=== PATIENT | male | born 1945 | race Caucasian/White ===

== ENCOUNTER 2017-01-12 06:16 | Day surgery (SDC) | payer MEDICARE, OTHER ==
[2017-01-12] MEDS ORDERED: PHENYLEPHRINE 2.5% OPHTH 2 ML DROPS ONE (06:28)
[2017-01-12] MEDS ORDERED: PROPARACAINE 0.5% OPHTH DROPS 15 ML OPTH ONE ×2 (06:55→07:44)
[2017-01-12] MEDS ORDERED: CYCLOPENTOLATE 1% OPHTH DROPS 2 ML OPTH ONE (06:55)
[2017-01-12] MEDS ORDERED: KETOROLAC 0.45% OPHTH DROPS OPTH ONE (06:55)
[2017-01-12] MEDS ORDERED: PHENYLEPHRINE 2.5% OPHTH 2 ML DROPS OPTH ONE (06:55)
[2017-01-12] MEDS ORDERED: LACTATED RINGERS 500 ML IV ONE (07:00)
[2017-01-12] MEDS ORDERED: LACTATED RINGERS 1,000 ML IV ONE (07:17)
[2017-01-12] MEDS ORDERED: CHONDR SULF/HYALURONATE SYRINGE IO ONE (07:44)
[2017-01-12] MEDS ORDERED: EPINEPHrine 1 MG/ML AMP IVP ONE (07:44)
[2017-01-12] MEDS ORDERED: TIMOLOL 0.5% OPHTH DROPS OPTH ONE (07:44)
[2017-01-12] MEDS ORDERED: BRIMONIDINE 0.2% OPHTH DROPS 5 ML OPTH ONE (07:44)
[2017-01-12] MEDS ORDERED: BSS/LIDOCAINE/EPINEPHRINE 1 ML SYRINGE IO ONE (07:45)
[2017-01-12] MEDS ORDERED: TRIAMCIN/MOXIFLOX/VANCO 1 ML VIAL IO ONE (07:45)
[2017-01-12] MEDS ORDERED: fentaNYL 100 MCG/2 ML VIAL IVP ONE (07:52)
[2017-01-12] MEDS ORDERED: MIDAZOLAM 2 MG/2 ML VIAL IVP ONE (07:52)
== END 2017-01-12 06:17 | disposition home or self-care (01) ==
PROC: 08RK3JZ Replacement of Left Lens with Synthetic Substitute, Percutaneous Approach (ICD-10-PCS; principal; 2017-01-12 07:30)
DX: E11.36 Type 2 diabetes mellitus with diabetic cataract (principal); H25.812 Combined forms of age-related cataract, left eye; I10 Essential (primary) hypertension; E78.5 Hyperlipidemia, unspecified; K21.9 Gastro-esophageal reflux disease without esophagitis; Z79.4 Long term (current) use of insulin; Z79.52 Long term (current) use of systemic steroids; Z85.828 Personal history of other malignant neoplasm of skin; Z87.891 Personal history of nicotine dependence; Z98.1 Arthrodesis status
CPT/HCPCS: 66984; A9270; J7120; V2632

== ENCOUNTER 2017-02-09 10:51 | Outpatient (CLI) | payer MEDICARE, OTHER | END 2017-02-09 10:52 | disposition home or self-care (01) | DX: M54.89 Other dorsalgia (principal); I10 Essential (primary) hypertension; E11.9 Type 2 diabetes mellitus without complications ==

== ENCOUNTER 2017-06-12 11:30 | Outpatient (CLI) | payer MEDICARE, OTHER ==
[2017-06-12 20:20] LABS: ALBUMIN/GLOBULIN RATIO 1.5 (1.0-2.2); BILIRUBIN,TOTAL 0.6 mg/dL (0.2-1.0); CALCIUM 9.3 mg/dL (8.5-10.3); CREATININE 1.4 mg/dL (0.6-1.2); POTASSIUM 4.6 mmol/L (3.5-5.0); TOTAL PROTEIN 7.4 g/dL (6.7-8.2)
[2017-06-12 21:14] LABS: HEMOGLOBIN A1C 0.91 g/dL
== END 2017-06-12 11:31 | disposition home or self-care (01) ==
LOC: LAB.WCP 11:30
PROVIDERS: ATTEND Family Medicine
DX: E78.9 Disorder of lipoprotein metabolism, unspecified (principal)
CPT/HCPCS: 36415; 80053; 83036

== ENCOUNTER 2017-11-27 22:18 | Observation (INO) | payer MEDICARE, OTHER ==
[2017-11-27] MEDS ORDERED: SODIUM CHLORIDE 0.9% 1,000 ML IV ONE (22:41)
[2017-11-27 23:03] LABS: BASOPHILS # (AUTO) 0.1 10^3/uL (0.0-0.1); BASOPHILS % (AUTO) 0.5 %; EOSINOPHILS # (AUTO) 0.1 10^3/uL (0.0-0.7); EOSINOPHILS % (AUTO) 1.3 %; HGB - HEMOGLOBIN 13.9 g/dL (14.0-18.0); LYMPHOCYTES # (AUTO) 1.2 10^3/uL (1.5-3.5); LYMPHOCYTES % (AUTO) 10.6 %; MEAN CORPUSCULAR HEMOGLOBIN 28.7 pg (27.0-31.0); MEAN CORPUSCULAR VOLUME 84.3 fL (80.0-94.0); MEAN PLATELET VOLUME 7.8 fL (7.4-11.4); MONOCYTES # (AUTO) 0.6 10^3/uL (0.0-1.0); MONOCYTES % (AUTO) 5.2 %; NEUTROPHILS # (AUTO) 9.2 10^3/uL (1.5-6.6); NEUTROPHILS % (AUTO) 82.4 %; PLT - PLATELET COUNT 150 10^3/uL (130-450); RED BLOOD COUNT 4.86 10^6/uL (4.70-6.10); RED CELL DISTRIBUTION WIDTH 13.7 % (12.0-15.0); WHITE BLOOD COUNT 11.2 x10^3/uL (4.8-10.8)
[2017-11-27 23:20] LABS: ALBUMIN 4.2 g/dL (3.2-5.5); ALBUMIN/GLOBULIN RATIO 1.4 (1.0-2.2); BILIRUBIN,TOTAL 0.4 mg/dL (0.2-1.0); CALCIUM 9.4 mg/dL (8.5-10.3); CREATININE 0.9 mg/dL (0.6-1.2); MAGNESIUM 1.7 mg/dL (1.7-2.8); TOTAL PROTEIN 7.1 g/dL (6.7-8.2)
--- NOTE | 2017-11-27 23:33 | XRAY Report ---
EXAM: ABDOMINAL SERIES AND PA CHEST EXAM DATE: 11/27/2017 11:08 PM. CLINICAL HISTORY: Abdominal pain and constipation. COMPARISON: CT 01/06/2014 TECHNIQUE: 2 views abdomen and 1 view chest. FINDINGS: CHEST: Lungs/Pleura: No focal opacities. No effusion or pneumothorax. Mediastinum: Within exam limitations, cardiomediastinal contour is normal. Other: Moderate left shoulder degenerative change. ABDOMEN: Bowel Gas Pattern: No abnormal dilated bowel loops. Free Air: No evidence of free intraperitoneal gas. Other: Moderate bilateral hip joint degenerative change. IMPRESSION: 1. No definite acute abdominal abnormality. 2. No acute cardiopulmonary abnormalities. [facility] Referring Provider Line: [phone] SITE ID: [id number]
--- NOTE | 2017-11-27 23:33 | XRAY Preliminary Report ---
Exam: XR ABDOMEN ACUTE IMPRESSION: 1. No definite acute abdominal abnormality. 2. No acute cardiopulmonary abnormalities. [facility] SITE ID: [id number]
[2017-11-28 00:12] LABS: BILIRUBIN,URINE NEGATIVE (NEGATIVE); GLUCOSE, URINE (UA) NEGATIVE (NEGATIVE); KETONES,URINE (UA) NEGATIVE (NEGATIVE); LEUKOCYTE ESTERASE, URINE NEGATIVE (NEGATIVE); NITRITE,URINE NEGATIVE (NEGATIVE); OCCULT BLOOD,URINE TRACE-LYSE (NEGATIVE); PH,URINE 6.5 PH (5.0-7.5); PROTEIN,URINE NEGATIVE (NEGATIVE); UROBILINOGEN,URINE 0.2 (NORMAL) E.U./dL (NORMAL)
[2017-11-28 00:16] LABS: CLARITY,URINE CLEAR (CLEAR)
[2017-11-28] MEDS ORDERED: IBUPROFEN 600 MG TABLET PO PRN (00:20)
[2017-11-28] MEDS ORDERED: SODIUM CHLORIDE FLUSH 0.9% 10 ML SYRINGE IVP PRN (00:20)
[2017-11-28] MEDS ORDERED: PROCHLORPERAZINE 10 MG/2 ML VIAL IVP PRN (00:20)
[2017-11-28] MEDS ORDERED: TEMAZEPAM 15 MG CAPSULE PO PRN (00:20)
[2017-11-28] MEDS ORDERED: oxyCODONE 5 MG TABLET PO PRN (00:20)
--- NOTE | 2017-11-28 00:22 | ED Physician Documentation ---
History of Present Illness - Stated complaint Stated Complaint: abd pain - Chief complaint Chief Complaint: Abd Pain - History obtained from History obtained from: Patient, Family - History of Present Illness Timing: Today - Additonal information Additional information: Patient is a 72 year old male with multiple co morbidities who is presenting to the emergency department for dizziness, generalized weakness and just not feeling well. patient states that the symptoms have been progressing over the last week. patient states that the dizziness was worse tonight so he came in for evaluation. Review of Systems Constitutional: denies: Fever, Chills Eyes: denies: Decreased vision Ears: denies: Ear pain Nose: denies: Rhinorrhea / runny nose, Congestion Throat: denies: Sore throat Cardiac: denies: Chest pain / pressure, Palpitations Respiratory: denies: Dyspnea, Cough, Wheezing GI: reports: Abdominal Pain, Constipation : denies: Dysuria, Frequency Skin: denies: Rash, Lesions Musculoskeletal: denies: Neck pain, Back pain Neurologic: reports: Generalized weakness. denies: Focal weakness, Numbness, Near syncope, Syncope, Headache, Head injury, LOC Immunocompromised: denies: Immunocompromised PD PAST MEDICAL HISTORY - Past Medical History Cardiovascular: Hypertension, High cholesterol, [place] Respiratory: None Endocrine/Autoimmune: Type 1 diabetes GI: GERD, Other : None HEENT: Chronic vision loss Psych: None Musculoskeletal: Osteoarthritis, Gout, Chronic back pain Derm: Psoriasis - Past Surgical History Past Surgical History: Yes Ortho: Knee replacement, Other - Present Medications Home Medications: Ambulatory Orders Medication Instructions Recorded Confirmed Amlodipine Besylate 5 mg PO BID 11/27/13 01/12/17 Aspirin 81 mg PO DAILY 11/27/13 01/12/17 Atorvastatin Calcium [Lipitor] 10 mg PO QPM 11/27/13 01/12/17 Calcium Citrate/Vitamin D3 1 each PO DAILY 11/27/13 01/12/17 [Citracal-Vit D 200 mg-250 Tab] Carvedilol [Coreg] 25 mg PO BID 11/27/13 01/12/17 Cholecalciferol (Vitamin D3) 2,000 unit PO DAILY 11/27/13 01/12/17 [Vitamin D] Clonidine [Catapres-Tts 3] 1 each TD ONCE 11/27/13 01/12/17 Cyclobenzaprine [Flexeril] 10 mg PO TID PRN 11/27/13 01/12/17 Doxazosin Mesylate [Cardura] 8 mg PO DAILY 11/27/13 01/12/17 Esomeprazole Magnesium [Nexium] 20 mg PO DAILY 11/27/13 01/12/17 FLUoxetine [PROzac] 60 mg PO DAILY 11/27/13 01/12/17 Fluocinolone Acetonide 1 gm TOP DAILY 11/27/13 01/12/17 Insulin Glargine,Hum.rec.anlog 30 unit SQ QPM 11/27/13 01/12/17 [Lantus] Metformin HCl [Fortamet] 1,000 mg PO BID 11/27/13 01/12/17 Polyethylene Glycol 3350 [Miralax] 1 cap PO DAILY 11/27/13 01/12/17 Spironolactone [Aldactone] 50 mg PO TID 11/27/13 01/12/17 Telmisartan [Micardis] 80 mg PO DAILY 11/27/13 01/12/17 oxyCODONE ER [OxyCONTIN] 40 mg PO Q12H 11/27/13 01/12/17 oxyCODONE [Roxicodone] 5 mg PO ONCE 11/27/13 01/12/17 Gabapentin 300 mg PO BID 01/12/17 01/12/17 Hydralazine HCl 100 mg PO TID 01/12/17 01/12/17 - Allergies Allergies/Adverse Reactions: Allergies Allergy/AdvReac Type Severity Reaction Status Date / Time amoxicillin [Amoxicillin] Allergy Hives Verified 11/27/17 22:34 acetaminophen AdvReac Nausea Verified 11/27/17 22:34 contrast dye Allergy Rash Uncoded 11/27/13 15:14 - Social History Does the pt smoke?: Yes Smoking Status: Current every day smoker Does the pt drink ETOH?: No Does the pt have substance abuse?: No - Immunizations Immunizations are current?: Yes PD ED PE NORMAL - Vitals Vital signs reviewed: Yes - General General: Alert and oriented X 3, No acute distress - HEENT HEENT: Atraumatic, PERRL - Neck Neck: Supple, no meningeal sign - Cardiac Cardiac: No murmur - Respiratory Respiratory: No respiratory distress, Clear bilaterally - Abdomen Abdomen: Soft, Non tender, Non distended - Derm Derm: Normal color, No rash - Extremities Extremities: No deformity, No calf tenderness / cord - Neuro Neuro: Alert and oriented X 3, tube trailer filler 2-12 intact, No motor deficit, No sensory deficit, Normal speech Eye Opening: Spontaneous Motor: Obeys Commands Verbal: Oriented GCS Score: 15 PD ED PE EXPANDED - HEENT HEENT: Dry mucous membranes - Cardiac Cardiac: Reba Results - Vitals Vitals: Vital Signs - 24 hr 11/27/17 22:30 Temperature 36.4 C L Heart Rate 50 L Respiratory 17 Rate Blood Pressure 160/62 H O2 Saturation 100 Oxygen O2 Source Room air - EKG (time done) 2252 Rate: Rate (enter#) (46) Rhythm: Sinus bradycardia Cedar: Normal Intervals: Normal AL QRS: Normal Ischemia: Normal ST segments Compare to prior EKG: Old EKG unavailable - Labs Labs: Laboratory Tests 11/27/17 11/27/17 11/27/17 22:53 22:53 22:53 WBC 11.2 H RBC 4.86 Hgb 13.9 L Hct 40.9 L MCV 84.3 MCH 28.7 MCHC 34.0 RDW 13.7 Plt Count 150 MPV 7.8 Neut # 9.2 H Lymph # 1.2 L Rawlins # 0.6 Eos # 0.1 Baso # 0.1 Absolute Nucleated RBC 0.00 Nucleated RBC % 0.0 Sodium 122 L Potassium 4.8 Chloride 84 L Carbon Dioxide 22 Anion Gap 15.0 H BUN 12 Creatinine 0.9 Estimated GFR (MDRD) 82 L Glucose 267 H Calcium 9.4 Phosphorus 3.0 Magnesium 1.7 Total Bilirubin 0.4 AST 18 ALT 19 Alkaline Phosphatase 74 Troponin I < 0.04 Total Protein 7.1 Albumin 4.2 Globulin 2.9 Albumin/Globulin Ratio 1.4 Lipase 25 TSH Urine Color Urine Clarity Urine pH Ur Specific [place] Urine Protein Urine Glucose (UA) Urine Ketones Urine Occult Blood Urine Nitrite Urine Bilirubin Urine Urobilinogen Ur Leukocyte Esterase Ur Microscopic Review Urine Culture Comments Influenza A (Rapid) Influenza B (Rapid) Influenza Types A,B Ag 11/27/17 11/27/17 11/28/17 22:53 22:53 00:00 WBC RBC Hgb Hct MCV MCH MCHC RDW Plt Count MPV Neut # Lymph # [place] # Eos # Baso # Absolute Nucleated RBC Nucleated RBC % Sodium Potassium Chloride Carbon Dioxide Anion Gap BUN Creatinine Estimated GFR (MDRD) Glucose Calcium Phosphorus Magnesium Total Bilirubin AST ALT Alkaline Phosphatase Troponin I Total Protein Albumin Globulin Albumin/Globulin Ratio Lipase TSH 0.92 Urine Color YELLOW Urine Clarity CLEAR Urine pH 6.5 Ur Specific [place] <=1.005 Urine Protein NEGATIVE Urine Glucose (UA) NEGATIVE Urine Ketones NEGATIVE Urine Occult Blood TRACE-LYSE Urine Nitrite NEGATIVE Urine Bilirubin NEGATIVE Urine Urobilinogen 0.2 (NORMAL) Ur Leukocyte Esterase NEGATIVE Ur Microscopic Review NOT INDICATED Urine Culture Comments NOT INDICATED Influenza A (Rapid) Negative Influenza B (Rapid) Negative Influenza Types A,B Ag - - Rads (name of study) acute abd Radiology: Final report received (no acute abnormality) PD MEDICAL DECISION MAKING - ED course Complexity details: reviewed old records, reviewed results, re-evaluated patient , considered differential, d/w patient, d/w family, d/w groundwater consultant ED course: Patient was seen and examined at bedside. IV access was gained and labs were drawn. Fluids were started. ekg was performed and showed sinus reba, but patient is on beta khoa. When patient's labs came back patient was found to be hyponatremic which is new for him. Hospitalist was contacted and the case was discussed with her. Patient was placed in observation for further care. Departure - Departure Disposition: ED Place in Observation Clinical Impression: Hyponatremia Condition: Good
[2017-11-28] MEDS ORDERED: CYCLOBENZAPRINE 10 MG TABLET PO PRN (00:29)
--- NOTE | 2017-11-28 00:34 | HISTORY & PHYSICAL EXAMINATION ---
Chief Complaint - Chief Complaint Chief Complaint: Dizziness and lightheadedness for about 1 week History of Present Illness - Admitted From Admitted From:: Home - History of Present Illness HPI Comment/Other: Mr. Wenceslao Dominguez Jr is a pleasant 72-year-old male who has been experiencing increasing dizziness and lightheadedness for about a week. He says it has been worsening daily; he also has multiple other complaints including a bloated abdomen and gassy feeling. He got to the point today where he was becoming unstable when walking and so came to the emergency department for evaluation and treatment.While here all of his testing was negative however incidentally was found that he was significantly hyponatremic with a sodium level of 122 so he was brought in for observation and replacement of his sodium stores. History - Past Medical History Cardiovascular: reports: Hypertension, High cholesterol, [place] Respiratory: reports: None Endocrine/Autoimmune: reports: Type 1 diabetes GI: reports: GERD, Other : reports: None HEENT: reports: Chronic vision loss Psych: reports: None Musculoskeletal: reports: Osteoarthritis, Gout, Chronic back pain Derm: reports: Psoriasis MRSA Hx?: No - Past Surgical History Ortho: reports: Knee replacement, Other Meds/Allgy - Home Medications Home Medications: Ambulatory Orders Medication Instructions Recorded Confirmed Amlodipine Besylate 5 mg PO BID 11/27/13 01/12/17 Aspirin 81 mg PO DAILY 11/27/13 01/12/17 Atorvastatin Calcium [Lipitor] 10 mg PO QPM 11/27/13 01/12/17 Calcium Citrate/Vitamin D3 1 each PO DAILY 11/27/13 01/12/17 [Citracal-Vit D 200 mg-250 Tab] Carvedilol [Coreg] 25 mg PO BID 11/27/13 01/12/17 Cholecalciferol (Vitamin D3) 2,000 unit PO DAILY 11/27/13 01/12/17 [Vitamin D] Clonidine [Catapres-Tts 3] 1 each TD ONCE 11/27/13 01/12/17 Cyclobenzaprine [Flexeril] 10 mg PO TID PRN 11/27/13 01/12/17 Doxazosin Mesylate [Cardura] 8 mg PO DAILY 11/27/13 01/12/17 Esomeprazole Magnesium [Nexium] 20 mg PO DAILY 11/27/13 01/12/17 FLUoxetine [PROzac] 60 mg PO DAILY 11/27/13 01/12/17 Fluocinolone Acetonide 1 gm TOP DAILY 11/27/13 01/12/17 Insulin Glargine,Hum.rec.anlog 30 unit SQ QPM 11/27/13 01/12/17 [Lantus] Metformin HCl [Fortamet] 1,000 mg PO BID 11/27/13 01/12/17 Polyethylene Glycol 3350 [Miralax] 1 cap PO DAILY 11/27/13 01/12/17 Spironolactone [Aldactone] 50 mg PO TID 11/27/13 01/12/17 Telmisartan [Micardis] 80 mg PO DAILY 11/27/13 01/12/17 oxyCODONE ER [OxyCONTIN] 40 mg PO Q12H 11/27/13 01/12/17 oxyCODONE [Roxicodone] 5 mg PO ONCE 11/27/13 01/12/17 Gabapentin 300 mg PO BID 01/12/17 01/12/17 Hydralazine HCl 100 mg PO TID 01/12/17 01/12/17 - Allergies Allergies/Adverse Reactions: Allergies Allergy/AdvReac Type Severity Reaction Status Date / Time amoxicillin [Amoxicillin] Allergy Hives Verified 11/27/17 22:34 acetaminophen AdvReac Nausea Verified 11/27/17 22:34 contrast dye Allergy Rash Uncoded 11/27/13 15:14 Review of Systems - Constitutional Constitutional: reports: Fatigue, Weakness. denies: Fever, Chills, Malaise - Eyes Eyes: denies: Pain, Irritation, Blurred vision, Dipolpia - Ears, Nose & Throat Ears, Nose & Throat: denies: Ear pain, Tinnitus, Vertigo, Nasal pain - Cardiovascular Cariovascular: denies: Palpitations, Chest pain, Edema, Syncope - Respiratory Respiratory: denies: Cough, Sputum production, Wheezing, Hemoptysis, Orthopnea - Gastrointestinal Gastrointestinal: reports: Bloating. denies: Abdominal pain, Abdominal distention, Constipation, Diarrhea, Change in bowel habits, Rectal bleeding - Genitourinary Genitourinary: denies: Dysuria, Frequency, Urgency, Hematuria - Musculoskeletal Musculoskeletal: denies: Muscle pain, Back pain, Muscle aches, Stiffness - Integumentary Integumentary: denies: Rash, Pruritis, Lesions - Neurological Neurological: reports: Dizziness. denies: General weakness, Focal weakness, Headache, Numbness - Psychiatric Psychiatric: denies: Depression, Anxiety, Suicidal, Hallucinations - Endocrine Endocrine: denies: Polyuria, Polydypsia, Polyphagia - Hematologic/Lymphatic Hematologic/Lymphatic: denies: Anemia, Bruising, Petechiae - All Other Systems All Other Systems: reports: Reviewed and negative Exam - Vital Signs Reviewed Vital Signs: Yes Vital Signs: Vital Signs x48h Temp Pulse Resp BP Pulse Ox 11/27/17 22:30 36.4 C L 50 L 17 160/62 H 100 - Physical Exam General Appearance: positive: No acute distress, Alert Eyes Bilateral: positive: Normal inspection, PERRL, EOMI ENT: positive: ENT inspection nml, Pharynx nml, No signs of dehydration. negative: Oral lesions Neck: positive: Nml inspection, Thyroid nml, No JVD, Trachea midline. negative : Thyromegaly Respiratory: positive: Chest non-tender, No respiratory distress, Breath sounds nml Cardiovascular: positive: Regular rate & rhythm, No murmur, No gallop Peripheral Pulses: positive: 1+ Abdomen: positive: Non-tender, No organomegaly, Nml bowel sounds, No distention. negative: Guarding, Rebound Back: positive: Nml inspection. negative: CVA tenderness (R), CVA tenderness (L ) Skin: positive: Color nml, No rash, Warm, Dry Extremities: positive: Non-tender, Full ROM, Nml appearance Neurologic/Psychiatric: positive: Oriented x3, CN's nml (2-12), Motor nml, Sensation nml, Mood/affect nml Conclusion/Plan - Problem List (1) Hyponatremia Conclusion/Plan: We will start admit the patient to observation and give him IV normal saline along with oral salt tablets. - Lab Results Lab results reviewed: Yes Fish Bones: 11/27/17 22:53 11/27/17 22:53 - Diagnostic Imaging Results Diagnostic Imaging Results: positive: Final report reviewed Diagnostic Imaging Results Comments: EXAM: ABDOMINAL SERIES AND PA CHEST EXAM DATE: 11/27/2017 11:08 PM. CLINICAL HISTORY: Abdominal pain and constipation. COMPARISON: CT 01/06/2014 TECHNIQUE: 2 views abdomen and 1 view chest. FINDINGS: CHEST: Lungs/Pleura: No focal opacities. No effusion or pneumothorax. Mediastinum: Within exam limitations, cardiomediastinal contour is normal. Other: Moderate left shoulder degenerative change. ABDOMEN: Bowel Gas Pattern: No abnormal dilated bowel loops. Free Air: No evidence of free intraperitoneal gas. Other: Moderate bilateral hip joint degenerative change. IMPRESSION: 1. No definite acute abdominal abnormality. 2. No acute cardiopulmonary abnormalities. Core Measures - Anticipated LOS I expect patient to be DC'd or transferred within 96 hours.: Yes - DVT/VTE - Prophylaxis VTE/DVT Device ordered at admit?: Yes
[2017-11-28] MEDS ORDERED: oxyCODONE ER 10 MG TABLET PO SCH ×2 (01:00→09:00)
[2017-11-28] MEDS ORDERED: oxyCODONE 5 MG TABLET PO SCH ×2 (01:00→06:00)
[2017-11-28] MEDS ORDERED: cloNIDine 0.3 MG PATCH TOP SCH (01:00)
[2017-11-28] MEDS ORDERED: NS W/20 MEQ KCL 1,000 ML IV SCH (01:00)
[2017-11-28 05:12] LABS: BASOPHILS % (AUTO) 0.4 %; EOSINOPHILS # (AUTO) 0.2 10^3/uL (0.0-0.7); EOSINOPHILS % (AUTO) 1.6 %; HGB - HEMOGLOBIN 12.9 g/dL (14.0-18.0); LYMPHOCYTES # (AUTO) 1.6 10^3/uL (1.5-3.5); LYMPHOCYTES % (AUTO) 16.3 %; MEAN CORPUSCULAR HEMOGLOBIN 29.6 pg (27.0-31.0); MEAN CORPUSCULAR HGB CONC 34.8 g/dL (32.0-36.0); MEAN CORPUSCULAR VOLUME 85.1 fL (80.0-94.0); MEAN PLATELET VOLUME 8.1 fL (7.4-11.4); MONOCYTES # (AUTO) 0.7 10^3/uL (0.0-1.0); MONOCYTES % (AUTO) 7.4 %; NEUTROPHILS # (AUTO) 7.4 10^3/uL (1.5-6.6); NEUTROPHILS % (AUTO) 74.3 %; PLT - PLATELET COUNT 136 10^3/uL (130-450); RED BLOOD COUNT 4.35 10^6/uL (4.70-6.10); WHITE BLOOD COUNT 9.9 x10^3/uL (4.8-10.8)
[2017-11-28 05:24] LABS: CALCIUM 8.7 mg/dL (8.5-10.3); CREATININE 0.8 mg/dL (0.6-1.2)
[2017-11-28 05:41] LABS: HB2 TOTAL 13.5 g/dL; HEMOGLOBIN A1C 0.8 g/dL; HEMOGLOBIN A1C % 7.6 % (4.6-6.2)
[2017-11-28] MEDS ORDERED: hydrALAZINE 25 MG TABLET PO SCH (06:00)
[2017-11-28] MEDS ORDERED: SODIUM CHLORIDE FLUSH 0.9% 10 ML SYRINGE IVP SCH (06:00)
[2017-11-28] MEDS ORDERED: SPIRONOLACTONE 25 MG TABLET PO SCH (06:00)
[2017-11-28] MEDS ORDERED: PANTOPRAZOLE 40 MG TABLET PO SCH (07:00)
[2017-11-28] MEDS ORDERED: POLYETHYLENE GLYCOL 3350 238 GM BOTTLE PO ONE (07:34)
--- NOTE | 2017-11-28 08:49 | Discharge Plan ---
Discharge Plan Disposition: 01 Home, Self Care Condition: Good Diet: Low Sodium Activity Restrictions: Activity as Tolerated Shower Restrictions: No Driving Restrictions: No Additional Instructions or Follow Up instructions: You were admitted to the hospital because of weakness and we think it was from a low sodium of 122. With salt water replacement via an IV in your arm, it is now 128 this morning. We think the low sodium is from maintenance prozac use as well as spironolactone. Please ask your primary care provider to consider stopping metformin. If you are on a diuretic, there is a higher risk of water dehydration. If you take metformin and you are dehydrated, it can sometimes lead to excess acid in your blood. We also found your A1c measurement for diabetic control to be 7.6%. Goal is to be 7% in your age group. Dr. Huddleston may need to change your diabetic medicine or you may need to tighten up how much carbohydrates you eat in your diet. No Smoking: If you smoke, Please STOP! Call for help. Follow-up with: Oskar Huddleston MD [Primary Care Provider] -
[2017-11-28] MEDS ORDERED: metFORMIN 500 MG TABLET PO SCH (09:00)
[2017-11-28] MEDS ORDERED: FLUOCINOLONE ACETONIDE TOP SCH (09:00)
[2017-11-28] MEDS ORDERED: LOSARTAN 50 MG TABLET PO SCH (09:00)
[2017-11-28] MEDS ORDERED: NON FORMULARY MED (Telmisartan [Micardis] 80 MG) PO SCH (09:00)
[2017-11-28] MEDS ORDERED: DOXAZOSIN 4 MG TABLET PO SCH (09:00)
[2017-11-28] MEDS ORDERED: CARVEDILOL 12.5 MG TABLET PO SCH (09:00)
[2017-11-28] MEDS ORDERED: CHOLECALCIFEROL 1,000 UNIT TABLET PO SCH (09:00)
[2017-11-28] MEDS ORDERED: POLYETHYLENE GLYCOL 3350 17 GM PACKET PO SCH (09:00)
[2017-11-28] MEDS ORDERED: POLYETHYLENE GLYCOL 3350 238 GM BOTTLE PO SCH (09:00)
[2017-11-28] MEDS ORDERED: ESOMEPRAZOLE MAGNESIUM 20 MG PO SCH (09:00)
[2017-11-28] MEDS ORDERED: amLODIPine 5 MG TABLET PO SCH (09:00)
[2017-11-28] MEDS: FLUoxetine 10 MG CAPSULE PO SCH ×2 (09:04→11:33)
[2017-11-28] MEDS: GABAPENTIN 300 MG CAPSULE PO SCH ×2 (09:07→11:28)
[2017-11-28] MEDS: CHOLECALCIFEROL 1,000 UNIT TABLET PO SCH ×2 (09:08→11:33)
[2017-11-28] MEDS: ASPIRIN CHEW 81 MG TABLET PO SCH ×2 (09:08→09:19)
[2017-11-28] MEDS: CALCIUM CITRATE 250 MG TABLET PO SCH ×2 (09:18→11:33)
[2017-11-28] MEDS: SODIUM CHLORIDE 1 GM TABLET PO SCH ×2 (09:18→11:33)
[2017-11-28 11:56] VITALS: BP 138/54
--- NOTE | 2017-11-28 17:44 | DISCHARGE SUMMARY ---
"Discharge Summary Admit Date: 11/28/17 Discharge Date: 11/28/17 Discharging Provider: Kianna Esparza MD Primary Care Provider: Oskar Huddleston MD Code Status: Do Not Attempt Resuscitation Condition at Discharge: Good Discharge Disposition: 01 Home, Self Care - DIAGNOSES Discharge Diagnoses with Status of Each Condition: hyponatremia, improved SSRI causing adverse effect in therapeutic use, chronic. - HPI History of Present Illness: Mr. Wenceslao Dominguez Jr is a pleasant 72-year-old male who has been experiencing increasing dizziness and lightheadedness for about a week. He says it has been worsening daily; he also has multiple other complaints including a bloated abdomen and gassy feeling. He got to the point today where he was becoming unstable when walking and so came to the emergency department for evaluation and treatment.While here all of his testing was negative however incidentally was found that he was significantly hyponatremic with a sodium level of 122 so he was brought in for observation and replacement of his sodium stores. - CONSULTS | PROCEDURES Consultations: none - HOSPITAL COURSE Hospital Course: He was treated with IV normal saline and responded with a sodium going from 122 to 128. It is felt he has hyponatremia from use of prozac (a known side effect of SSRI) and aldactone. long as the hyponatremia is stable, SSRI treatment can safely remain in place. However this patient shares that his use is erratic. He takes his medicines on a method established by himself. He also has diabetes that is mildly uncontrolled with an A1c of 7.6%. Because he uses metformin, it is recommended he consider a different method of treatment to avoid lactic acidosis. I have asked him to see his PCP in the next week and to get a BMP done. - ALLERGIES Allergies/Adverse Reactions: Allergies Allergy/AdvReac Type Severity Reaction Status Date / Time amoxicillin [Amoxicillin] Allergy Hives Verified 11/27/17 22:34 acetaminophen AdvReac Nausea Verified 11/27/17 22:34 contrast dye Allergy Rash Uncoded 11/27/13 15:14 - MEDICATIONS Home Medications: Ambulatory Orders Medication Instructions Recorded Confirmed Amlodipine Besylate 5 mg PO BID 11/27/13 11/28/17 Atorvastatin Calcium [Lipitor] 10 mg PO QPM 11/27/13 11/28/17 Calcium Citrate/Vitamin D3 1 each PO DAILY 11/27/13 11/28/17 [Citracal-Vit D3 200 mg-250 Tab] Carvedilol [Coreg] 25 mg PO BID 11/27/13 11/28/17 Cholecalciferol (Vitamin D3) 2,000 unit PO DAILY 11/27/13 11/28/17 [Vitamin D3] Clonidine [Catapres-Tts 3] 1 each TD .WEEKLY 11/27/13 11/28/17 Insulin Glargine,Hum.rec.anlog 30 unit SQ QPM 11/27/13 11/28/17 [Lantus] Metformin HCl [Fortamet] 1,000 mg PO BIDWM 11/27/13 11/28/17 Polyethylene Glycol 3350 [Miralax] 8.5 - 17 gm PO DAILY 11/27/13 11/28/17 Spironolactone [Aldactone] 50 mg PO BID 11/27/13 11/28/17 Telmisartan [Micardis] 80 mg PO DAILY 11/27/13 11/28/17 oxyCODONE [Roxicodone] 5 mg PO TID PRN 11/27/13 11/28/17 Esomeprazole Magnesium [Nexium] 40 mg PO QDAC 11/28/17 11/28/17 Fluoxetine HCl [Fluoxetine HCl] 60 mg PO DAILY 11/28/17 11/28/17 Oxycodone HCl [Oxycontin] 40 mg PO QID 11/28/17 11/28/17 - PHYSICAL EXAM AT DISCHARGE General Appearance: positive: No acute distress, Alert Eyes Bilateral: positive: PERRL, EOMI ENT: positive: Pharynx nml Neck: positive: No JVD. negative: Stiff neck, Carotid bruit Respiratory: positive: Chest non-tender. negative: Wheezes, Rales, Rhonchi Cardiovascular: positive: Regular rate & rhythm, Systolic murmur. negative: Gallop/S4, Friction rub Abdomen: positive: Non-tender, No organomegaly, Nml bowel sounds, No distention Skin: positive: Warm, Dry Extremities: positive: Full ROM, No pedal edema Neurologic/Psychiatric: positive: Oriented x3, CN's nml (2-12), Motor nml - LABS Result Diagrams: 11/28/17 04:43 11/28/17 04:43 - DIAGNOSTIC IMAGING Diagnostic Imaging Results: Final report reviewed Diagnostic Imaging Results Comments: acute abdominal series without acute changes."
[2017-11-28] MEDS ORDERED: ATORVASTATIN 10 MG TABLET PO SCH (21:00)
[2017-11-28] MEDS ORDERED: INSULIN GLARGINE 300 UNIT/3 ML PEN SUBQ SCH (21:00)
== END 2017-11-28 12:40 | disposition home or self-care (01) ==
LOC: ED 22:18 → OBS 11-28 00:20
PROVIDERS: ADMIT Hospitalist; ATTEND Specialist
DX: E87.1 Hypo-osmolality and hyponatremia (principal); T43.225A Adverse effect of selective serotonin reuptake inhibitors, initial encounter; T50.0X5A Adverse effect of mineralocorticoids and their antagonists, initial encounter; E10.65 Type 1 diabetes mellitus with hyperglycemia; I10 Essential (primary) hypertension; E78.00 Pure hypercholesterolemia, unspecified; K21.9 Gastro-esophageal reflux disease without esophagitis; G89.29 Other chronic pain; M54.9 Dorsalgia, unspecified; F17.200 Nicotine dependence, unspecified, uncomplicated; I25.2 Old myocardial infarction; Z66 Do not resuscitate; Z79.82 Long term (current) use of aspirin; Z79.4 Long term (current) use of insulin; Z79.84 Long term (current) use of oral hypoglycemic drugs; Z79.891 Long term (current) use of opiate analgesic
CPT/HCPCS: 36415; 74022; 80048; 80053; 81003; 83036; 83690; 83735; 84100; 84443; 84484; 85025; 87275; 87276; 93005; 96360; 96361; 99284; 99285; A9270; G0378; 81001; 87086

== ENCOUNTER 2017-12-14 09:52 | Outpatient (CLI) | payer MEDICARE, OTHER ==
--- NOTE | 2017-12-14 19:28 | XRAY Report ---
DATE OF SERVICE: 12/14/2017 THREE VIEW LUMBAR SPINE: 12/14/2017 CLINICAL INDICATION: Pain. AP, lateral, coned-down views of the lumbar spine demonstrate moderate to severe degenerative disk and facet disease. There is no evidence of fracture or subluxation. Vascular calcifications are present. The bowel gas pattern appears unremarkable. IMPRESSION: Moderate to severe degenerative disk and facet disease. No evidence of fracture. TD: 12/14/2017 20:27
--- NOTE | 2017-12-14 19:29 | XRAY Report ---
DATE OF SERVICE: 12/14/2017 THREE VIEW BILATERAL KNEES: 12/14/2017 CLINICAL INDICATION: Pain. AP, lateral, sunrise views of the bilateral knees were obtained. The right knee demonstrates moderate to severe osteoarthritis, with chondrocalcinosis. There is no evidence of acute fracture. No effusion is appreciated on the right side. The left knee demonstrates a total knee replacement in place. There is no evidence of fracture or hardware complication. IMPRESSION: Moderate right knee osteoarthritis. Left knee replacement. TD: 12/14/2017 20:29
--- NOTE | 2017-12-14 19:32 | XRAY Report ---
DATE OF SERVICE: 12/14/2017 THREE VIEW LEFT ANKLE: 12/14/2017 CLINICAL INDICATION: Pain. AP, lateral, oblique views of the left ankle demonstrate previous screw fixation of the medial malleolus. There are healed fractures of the tibia and fibula shafts, and osseous fusion of the tibiotalar joint. Extensive degenerative changes are seen in the hindfoot joints. There is no evidence of acute fracture. IMPRESSION: Previous healed fractures. Osseous fusion of the tibiotalar joint. Extensive degenerative changes. TD: 12/14/2017 20:31
== END 2017-12-14 09:53 | disposition home or self-care (01) ==
LOC: DI 09:52
PROVIDERS: ATTEND Anesthesiology Pain Medicine
DX: M51.36 Other intervertebral disc degeneration, lumbar region (principal); M47.896 Other spondylosis, lumbar region; M17.11 Unilateral primary osteoarthritis, right knee; Z96.652 Presence of left artificial knee joint; M19.072 Primary osteoarthritis, left ankle and foot
CPT/HCPCS: 72100

== ENCOUNTER 2018-03-26 23:43 | Emergency (ER) | payer MEDICARE, OTHER ==
[2018-03-27] MEDS ORDERED: GLUCAGON 1 MG/ML VIAL IVP STA (00:04)
[2018-03-27] MEDS ORDERED: ONDANSETRON 4 MG/2 ML VIAL IVP STA (00:04)
[2018-03-27] MEDS ORDERED: ONDANSETRON ODT 4 MG Prepack 2 TL PRN (01:03)
--- NOTE | 2018-03-27 01:08 | ED Physician Documentation ---
PD HPI HEENT FB - Chief complaint Chief Complaint: Heent - History obtained from History obtained from: Patient, Family - History of Present Illness Timing - onset: Today Location: Esophagus Similar symptoms before: Work up / diagnostics, Treatment Recently seen: Not recently seen - Additional information Additional information: patient is a 73 year old male who is presenting to the emergency department for food bolus in his esophagus. 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 Patient states that he tried eating a german sausage this afternoon and it got stuck. Patient has been able to swallow secretions but has been unable to tolerate much else otherwise. Review of Systems Ten Systems: 10 systems reviewed and negative PD PAST MEDICAL HISTORY - Past Medical History Past Medical History: Yes Cardiovascular: Hypertension, High cholesterol, [place] Respiratory: None Endocrine/Autoimmune: Type 1 diabetes GI: GERD, Other : None HEENT: Chronic vision loss Psych: None Musculoskeletal: Osteoarthritis, Gout, Chronic back pain Derm: Psoriasis - Past Surgical History Past Surgical History: Yes Ortho: Knee replacement, Other - Present Medications Home Medications: Ambulatory Orders Medication Instructions Recorded Confirmed Amlodipine Besylate 5 mg PO BID 11/27/13 11/28/17 Atorvastatin Calcium [Lipitor] 10 mg PO QPM 11/27/13 11/28/17 Calcium Citrate/Vitamin D3 1 each PO DAILY 11/27/13 11/28/17 [Citracal-Vit D3 200 mg-250 Tab] Carvedilol [Coreg] 25 mg PO BID 11/27/13 11/28/17 Cholecalciferol (Vitamin D3) 2,000 unit PO DAILY 11/27/13 11/28/17 [Vitamin D3] Clonidine [Catapres-Tts 3] 1 each TD .WEEKLY 11/27/13 11/28/17 Insulin Glargine,Hum.rec.anlog 30 unit SQ QPM 11/27/13 11/28/17 [Lantus] Metformin HCl [Fortamet] 1,000 mg PO BIDWM 11/27/13 11/28/17 Polyethylene Glycol 3350 [Miralax] 8.5 - 17 gm PO DAILY 11/27/13 11/28/17 Spironolactone [Aldactone] 50 mg PO BID 11/27/13 11/28/17 Telmisartan [Micardis] 80 mg PO DAILY 11/27/13 11/28/17 oxyCODONE [Roxicodone] 5 mg PO TID PRN 11/27/13 11/28/17 Esomeprazole Magnesium [Nexium] 40 mg PO QDAC 11/28/17 11/28/17 Fluoxetine HCl [Fluoxetine HCl] 60 mg PO DAILY 11/28/17 11/28/17 Oxycodone HCl [Oxycontin] 40 mg PO QID 11/28/17 11/28/17 Ondansetron Odt [Zofran] 4 mg TL Q6H PRN #14 tablet 03/27/18 - Allergies Allergies/Adverse Reactions: Allergies Allergy/AdvReac Type Severity Reaction Status Date / Time amoxicillin [Amoxicillin] Allergy Hives Verified 03/27/18 00:06 acetaminophen AdvReac Nausea Verified 03/27/18 00:06 aspirin AdvReac Nausea Verified 03/27/18 00:06 contrast dye Allergy Rash Uncoded 03/27/18 00:06 - Social History Does the pt smoke?: Yes Smoking Status: Current every day smoker Does the pt drink ETOH?: No Does the pt have substance abuse?: No - Immunizations Immunizations are current?: Yes - POLST Patient has POLST: No PD ED PE NORMAL - General General: Alert and oriented X 3, Well developed/nourished - HEENT HEENT: Atraumatic - Cardiac Cardiac: RRR - Respiratory Respiratory: No respiratory distress - Abdomen Abdomen: Non distended - Derm Derm: Normal color, Warm and dry - Extremities Extremities: No deformity - Neuro Neuro: Alert and oriented X 3, No motor deficit, Normal speech Eye Opening: Spontaneous Results - Vitals Vitals: Vital Signs - 24 hr 03/26/18 03/27/18 03/27/18 23:56 00:27 01:19 Temperature 36.4 C L Heart Rate 67 55 L 60 Respiratory 18 18 16 Rate Blood Pressure 187/75 H 160/89 H 158/70 H O2 Saturation 99 100 100 Oxygen O2 Source Room air PD MEDICAL DECISION MAKING - ED course Complexity details: reviewed old records, re-evaluated patient, considered differential, d/w patient, d/w family ED course: Patient was seen and examined at bedside. patient was treated with glucagon and zofran and given carbonated beverage. The glucagon was unsuccessful. General surgeon Dr. Larsen was contacted and the case was discussed with him. He stated that the OR was busy tomorrow and that we should contact GI at another hospital. This was discussed with the family who stated that they would rather wait to see if it passed. Patient was able to swallow small amounts of water and was no pooling his secretions. Patient required no further work up and was stable for discharge with outpatient follow up. Departure - Departure Disposition: 01 Home, Self Care Clinical Impression: Foreign body in esophagus Condition: Good Instructions: ED Foreign Body Swallowed Adult Follow-Up: João Hartman MD [Provider Admit Priv/Credential] - Prescriptions: Ondansetron Odt [Zofran] 4 mg TL Q6H PRN #14 tablet PRN Reason: Nausea / Vomiting Comments: Your symptoms today are being caused by food impaction. You can keep trying to take small sips of water or carbonated beverages but if it doesn't resolve you will need to return to the emergency department. if it does resolve you should still schedule a follow up appointment with Dr. Dominique to discuss possible dilation. Discharge Date/Time: 03/27/18 01:20
[2018-03-27 01:21] VITALS: BP 158/70
== END 2018-03-27 01:20 | disposition home or self-care (01) ==
LOC: ED 23:43
DX: T18.128A Food in esophagus causing other injury, initial encounter (principal); Y93.89 Activity, other specified; Y92.9 Unspecified place or not applicable; I10 Essential (primary) hypertension; E10.9 Type 1 diabetes mellitus without complications; K21.9 Gastro-esophageal reflux disease without esophagitis; F17.200 Nicotine dependence, unspecified, uncomplicated; Z79.4 Long term (current) use of insulin; Z79.891 Long term (current) use of opiate analgesic
CPT/HCPCS: 96374; 96375; 99283

== ENCOUNTER 2018-05-10 08:00 | Outpatient (CLI) | payer MEDICARE, OTHER ==
[2018-05-10 18:55] LABS: BASOPHILS # (AUTO) 0.1 10^3/uL (0.0-0.1); BASOPHILS % (AUTO) 0.6 %; EOSINOPHILS # (AUTO) 0.3 10^3/uL (0.0-0.7); EOSINOPHILS % (AUTO) 3.3 %; LYMPHOCYTES # (AUTO) 1.5 10^3/uL (1.5-3.5); LYMPHOCYTES % (AUTO) 16.2 %; MEAN CORPUSCULAR HEMOGLOBIN 29.7 pg (27.0-31.0); MEAN CORPUSCULAR HGB CONC 33.4 g/dL (32.0-36.0); MEAN CORPUSCULAR VOLUME 88.8 fL (80.0-94.0); MEAN PLATELET VOLUME 8.8 fL (7.4-11.4); MONOCYTES # (AUTO) 0.5 10^3/uL (0.0-1.0); MONOCYTES % (AUTO) 5.7 %; NEUTROPHILS # (AUTO) 6.8 10^3/uL (1.5-6.6); NEUTROPHILS % (AUTO) 74.2 %; PLT - PLATELET COUNT 135 10^3/uL (130-450); RED BLOOD COUNT 5.05 10^6/uL (4.70-6.10); RED CELL DISTRIBUTION WIDTH 14.7 % (12.0-15.0); WHITE BLOOD COUNT 9.2 x10^3/uL (4.8-10.8)
[2018-05-10 19:29] LABS: ALBUMIN 3.8 g/dL (3.2-5.5); ALBUMIN/GLOBULIN RATIO 1.2 (1.0-2.2); ALKALINE PHOSPHATASE 65 IU/L (42-121); ALT ALANINE AMINOTRANSFERASE 14 IU/L (10-60); AST ASPARTATE AMINOTRANSFERASE 16 IU/L (10-42); BILIRUBIN,TOTAL 0.7 mg/dL (0.2-1.0); BUN - BLOOD UREA NITROGEN 10 mg/dL (6-20); CALCIUM 9.1 mg/dL (8.5-10.3); CARBON DIOXIDE - CO2 27 mmol/L (21-32); CHLORIDE 101 mmol/L (101-111); CHOL/HDL RATIO 5.2 (<5.0); CHOLESTEROL 177 mg/dL; GFR - MDRD 73 (>89); GLUCOSE 194 mg/dL (70-100); HDL CHOLESTEROL 34 mg/dL; LDL CHOLESTEROL,CALCULATED 119 mg/dL; LDL/HDL RATIO 3.5 (<3.6); SODIUM 135 mmol/L (135-145); TOTAL PROTEIN 7.1 g/dL (6.7-8.2); URIC ACID 6.7 mg/dL (2.6-7.2); VLDL CHOLESTEROL 24 mg/dL
[2018-05-10 19:58] LABS: HB2 TOTAL 16.4 g/dL; HEMOGLOBIN A1C 0.86 g/dL; HEMOGLOBIN A1C % 6.9 % (4.6-6.2)
== END 2018-05-10 08:01 | disposition home or self-care (01) ==
LOC: LAB.WCP 08:00
PROVIDERS: ATTEND Family Medicine
DX: I10 Essential (primary) hypertension (principal); E11.9 Type 2 diabetes mellitus without complications; E78.5 Hyperlipidemia, unspecified
CPT/HCPCS: 36415; 80053; 80061; 82043; 83036; 83721; 84443; 84550; 85025

== ENCOUNTER 2018-07-19 18:31 | Emergency (ER) | payer MEDICARE, OTHER ==
[2018-07-19 19:46] LABS: BILIRUBIN,URINE NEGATIVE (NEGATIVE); GLUCOSE, URINE (UA) 250 mg/dL (NEGATIVE); KETONES,URINE (UA) TRACE mg/dL (NEGATIVE); LEUKOCYTE ESTERASE, URINE NEGATIVE (NEGATIVE); NITRITE,URINE NEGATIVE (NEGATIVE); OCCULT BLOOD,URINE MODERATE (NEGATIVE); PH,URINE 6.5 PH (5.0-7.5); PROTEIN,URINE 30 mg/dL (NEGATIVE); UROBILINOGEN,URINE 0.2 (NORMAL) E.U./dL (NORMAL)
[2018-07-19 19:49] LABS: CLARITY,URINE CLEAR (CLEAR)
[2018-07-19 19:59] LABS: BACTERIA,URINE None Seen /HPF (None Seen); SQUAMOUS EPITHELIAL CELL,UR NONE SEEN (<= Few)
--- NOTE | 2018-07-19 21:40 | ED Physician Documentation ---
PD HPI ABD PAIN - Stated complaint Stated Complaint: CONSTIPATION/NAUSEA/SENT BY DOC - Chief complaint Chief Complaint: Abd Pain - History obtained from History obtained from: Patient - History of Present Illness Timing - onset: Today Timing - duration: Days (1) Timing - details: Gradual onset, Waxing and waning Quality: Cramping, Aching, Fullness/distended, Pain Location: Periumbilical, LLQ Improved by: BM (had small BM earlier but hard, did feel slightly better.) Associated symptoms: Nausea, Constipation. No: Fever, Vomiting Similar symptoms before: Diagnosis (constipation but also history of diverticulitis.) Review of Systems Constitutional: denies: Fever, Chills Nose: denies: Rhinorrhea / runny nose, Congestion Throat: denies: Sore throat Respiratory: denies: Cough GI: reports: Abdominal Pain, Constipation. denies: Vomiting, Bloody / black stool : denies: Dysuria, Frequency PD PAST MEDICAL HISTORY - Past Medical History Cardiovascular: Hypertension, High cholesterol, [place] Respiratory: None Endocrine/Autoimmune: Type 1 diabetes GI: GERD, Other : None HEENT: Chronic vision loss Psych: None Musculoskeletal: Osteoarthritis, Gout, Chronic back pain Derm: Psoriasis - Past Surgical History Past Surgical History: Yes Ortho: Knee replacement, Other - Present Medications Home Medications: Ambulatory Orders Medication Instructions Recorded Confirmed Amlodipine Besylate 5 mg PO BID 11/27/13 11/28/17 Atorvastatin Calcium [Lipitor] 10 mg PO QPM 11/27/13 11/28/17 Calcium Citrate/Vitamin D3 1 each PO DAILY 11/27/13 11/28/17 [Citracal-Vit D3 200 mg-250 Tab] Carvedilol [Coreg] 25 mg PO BID 11/27/13 11/28/17 Cholecalciferol (Vitamin D3) 2,000 unit PO DAILY 11/27/13 11/28/17 [Vitamin D3] Clonidine [Catapres-Tts 3] 1 each TD .WEEKLY 11/27/13 11/28/17 Insulin Glargine,Hum.rec.anlog 30 unit SQ QPM 11/27/13 11/28/17 [Lantus] Metformin HCl [Fortamet] 1,000 mg PO BIDWM 11/27/13 11/28/17 Polyethylene Glycol 3350 [Miralax] 8.5 - 17 gm PO DAILY 11/27/13 11/28/17 Spironolactone [Aldactone] 50 mg PO BID 11/27/13 11/28/17 Telmisartan [Micardis] 80 mg PO DAILY 11/27/13 11/28/17 oxyCODONE [Roxicodone] 5 mg PO TID PRN 11/27/13 11/28/17 Esomeprazole Magnesium [Nexium] 40 mg PO QDAC 11/28/17 11/28/17 Fluoxetine HCl [Fluoxetine HCl] 60 mg PO DAILY 11/28/17 11/28/17 Oxycodone HCl [Oxycontin] 40 mg PO QID 11/28/17 11/28/17 Ondansetron Odt [Zofran] 4 mg TL Q6H PRN #14 tablet 03/27/18 Docusate Sodium 100 mg PO DAILY #30 capsule 07/20/18 Ondansetron Odt [Zofran] 4 mg TL Q6H PRN #15 tablet 07/20/18 - Allergies Allergies/Adverse Reactions: Allergies Allergy/AdvReac Type Severity Reaction Status Date / Time amoxicillin [Amoxicillin] Allergy Hives Verified 07/19/18 18:55 acetaminophen AdvReac Nausea Verified 07/19/18 18:55 aspirin AdvReac Nausea Verified 07/19/18 18:55 contrast dye Allergy Rash Uncoded 03/27/18 00:06 - Social History Does the pt smoke?: Yes Smoking Status: Current every day smoker Does the pt drink ETOH?: No Does the pt have substance abuse?: No - Immunizations Immunizations are current?: Yes - POLST Patient has POLST: No PD ED PE NORMAL - Vitals Vital signs reviewed: Yes - General General: Alert and oriented X 3, No acute distress, Well developed/nourished - HEENT HEENT: Pharynx benign - Neck Neck: Supple, no meningeal sign, No adenopathy - Cardiac Cardiac: RRR, No murmur - Respiratory Respiratory: Clear bilaterally - Abdomen Abdomen: Normal bowel sounds, Soft, Non distended, No organomegaly, Other (some tenderness lower abd and left sided abd without guarding nor peritoneal signs. ) - Male Male : Deferred - Back Back: No CVA TTP - Derm Derm: Normal color, Warm and dry - Neuro Neuro: Alert and oriented X 3, No motor deficit, Normal speech Results - Vitals Vitals: Vital Signs - 24 hr 07/19/18 07/19/18 07/19/18 18:45 21:22 23:06 Temperature 36.2 C L 37.1 C Heart Rate 62 68 64 Respiratory 18 18 18 Rate Blood Pressure 187/79 H 201/83 H 209/81 H O2 Saturation 94 97 98 07/19/18 07/20/18 23:51 00:15 Temperature 36.4 C L Heart Rate 63 68 Respiratory 16 18 Rate Blood Pressure 207/71 H 156/98 H O2 Saturation 98 100 Oxygen O2 Source Room air - Labs Labs: Laboratory Tests 07/19/18 07/19/18 07/19/18 19:33 22:40 22:40 WBC 12.3 H RBC 5.59 Hgb 16.4 Hct 47.2 MCV 84.4 MCH 29.4 MCHC 34.8 RDW 13.6 Plt Count 142 MPV 8.5 Neut # (Auto) 10.6 H Lymph # (Auto) 1.1 L [place] # (Auto) 0.5 Eos # (Auto) 0.1 Baso # (Auto) 0.1 Absolute Nucleated RBC 0.02 Nucleated RBC % 0.2 Sodium 138 Potassium 3.9 Chloride 95 L Carbon Dioxide 26 Anion Gap 17.0 H BUN 10 Creatinine 0.9 Estimated GFR (MDRD) 82 L Glucose 207 H Calcium 10.7 H Total Bilirubin 1.3 H AST 20 ALT 17 Alkaline Phosphatase 83 Total Protein 8.0 Albumin 4.5 Globulin 3.5 Albumin/Globulin Ratio 1.3 Lipase 26 Urine Color YELLOW Urine Clarity CLEAR Urine pH 6.5 Ur Specific [place] 1.010 Urine Protein 30 H Urine Glucose (UA) 250 H Urine Ketones TRACE Urine Occult Blood MODERATE H Urine Nitrite NEGATIVE Urine Bilirubin NEGATIVE Urine Urobilinogen 0.2 (NORMAL) Ur Leukocyte Esterase NEGATIVE Urine RBC 6-10 H Urine WBC 0-3 Ur Squamous Epith Cells NONE SEEN Urine Bacteria None Seen Ur Microscopic Review INDICATED Urine Culture Comments NOT INDICATED - Rads (name of study) abd CT Radiology: Prelim report reviewed (diverticulosis without diverticulitis. No acute process to account for pain. ), EMP read contemporaneously (moderate stool burden. ) PD MEDICAL DECISION MAKING - ED course Complexity details: reviewed results, re-evaluated patient (feeling better with enema and some stool out. ), considered differential (consider constipation versus diverticultiis, stone, UTI, other process. ), d/w patient, d/w family - Sepsis Event Vital Signs: Vital Signs - 24 hr 07/19/18 07/19/18 07/19/18 18:45 21:22 23:06 Temperature 36.2 C L 37.1 C Heart Rate 62 68 64 Respiratory 18 18 18 Rate Blood Pressure 187/79 H 201/83 H 209/81 H O2 Saturation 94 97 98 07/19/18 07/20/18 23:51 00:15 Temperature 36.4 C L Heart Rate 63 68 Respiratory 16 18 Rate Blood Pressure 207/71 H 156/98 H O2 Saturation 98 100 Oxygen O2 Source Room air Departure - Departure Disposition: Home, Self Care Clinical Impression: Abdominal pain Qualifiers: Abdominal location: generalized Qualified Code(s): R10.84 - Generalized abdominal pain Constipation Qualifiers: Constipation type: unspecified constipation type Qualified Code(s): K59.00 - Constipation, unspecified Condition: Stable Record reviewed to determine appropriate education?: Yes Instructions: ED Abdominal Pain Unkn Cause, ED Constipation Follow-Up: Oskar Huddleston MD [Primary Care Provider] - Prescriptions: Docusate Sodium 100 mg PO DAILY #30 capsule Ondansetron Odt [Zofran] 4 mg TL Q6H PRN #15 tablet PRN Reason: Nausea / Vomiting Comments: No signs of serious cause of the belly pain. Your CT scan shows some diverticuli but no diverticulitis. Your appendix is normal. No signs of obstruction. Your blood tests and white count and urine tests are normal. There is a generous amount of stool noted in the colon and intestine on CT scan. This would go along with the constipation cause for your symptoms. Continue usual medications. Add docusate daily as another stool softener. Use half of the mag citrate this evening and the other half tomorrow to help spur more stool output. Tylenol if needed for cramps. Ondansetron for nausea. Recheck if not fully improved over the next day or 2. Discharge Date/Time: 07/20/18 00:16
[2018-07-19] MEDS ORDERED: KETOROLAC 60 MG/2 ML VIAL IVP STA (22:04)
[2018-07-19] MEDS ORDERED: SODIUM CHLORIDE 0.9% 1,000 ML IV ONE (22:04)
[2018-07-19] MEDS ORDERED: MINERAL OIL ENEMA 133 ML BOTTLE RC STA (22:04)
[2018-07-19] MEDS ORDERED: ONDANSETRON 4 MG/2 ML VIAL IVP STA (22:04)
[2018-07-19 22:51] LABS: BASOPHILS # (AUTO) 0.1 10^3/uL (0.0-0.1); BASOPHILS % (AUTO) 0.6 %; EOSINOPHILS # (AUTO) 0.1 10^3/uL (0.0-0.7); EOSINOPHILS % (AUTO) 0.7 %; HGB - HEMOGLOBIN 16.4 g/dL (14.0-18.0); LYMPHOCYTES # (AUTO) 1.1 10^3/uL (1.5-3.5); LYMPHOCYTES % (AUTO) 8.7 %; MEAN CORPUSCULAR HEMOGLOBIN 29.4 pg (27.0-31.0); MEAN CORPUSCULAR HGB CONC 34.8 g/dL (32.0-36.0); MEAN CORPUSCULAR VOLUME 84.4 fL (80.0-94.0); MEAN PLATELET VOLUME 8.5 fL (7.4-11.4); MONOCYTES # (AUTO) 0.5 10^3/uL (0.0-1.0); MONOCYTES % (AUTO) 3.7 %; NEUTROPHILS # (AUTO) 10.6 10^3/uL (1.5-6.6); NEUTROPHILS % (AUTO) 86.3 %; PLT - PLATELET COUNT 142 10^3/uL (130-450); RED BLOOD COUNT 5.59 10^6/uL (4.70-6.10); RED CELL DISTRIBUTION WIDTH 13.6 % (12.0-15.0); WHITE BLOOD COUNT 12.3 x10^3/uL (4.8-10.8)
[2018-07-19 23:26] LABS: ALBUMIN 4.5 g/dL (3.2-5.5); ALBUMIN/GLOBULIN RATIO 1.3 (1.0-2.2); BILIRUBIN,TOTAL 1.3 mg/dL (0.2-1.0); CALCIUM 10.7 mg/dL (8.5-10.3); CREATININE 0.9 mg/dL (0.6-1.2)
--- NOTE | 2018-07-19 23:46 | CT Report ---
Reason: left abd pain and nausea for 2 days Procedure Date: 07/19/2018 Accession Number: [id number] / [id number] Procedure: CT - Abdomen/Pelvis W/O CPT Code: FULL RESULT: EXAM: CT ABDOMEN AND PELVIS EXAM DATE: 07/19/2018 11:18 PM. CLINICAL HISTORY: Left abdominal pain and nausea for 2 days. COMPARISONS: CT abdomen pelvis 01/06/2014. TECHNIQUE: Routine helical CT imaging was performed through the abdomen and pelvis. IV contrast: No. Enteric contrast: No. Reconstructions: Coronal and sagittal. In accordance with CT protocol optimization, one or more of the following dose reduction techniques were utilized for this exam: automated exposure control, adjustment of mA and/or KV based on patient size, or use of iterative reconstructive technique. FINDINGS: Lung bases: Coronary artery calcification. Irregular nodule seen medially in the right lower lobe posterior aspect abutting the pleura, measures 1.3 x 0.7 cm, appears unchanged from 2013 most suggestive for benign. Liver: Small nonspecific low-density lesions seen in the right hepatic lobe measuring 7 mm, unchanged. Tiny nonspecific low density lesion seen at the liver dome. Gallbladder: Unremarkable. Bile ducts: Unremarkable. Pancreas: Atrophic. Spleen: Unremarkable. Adrenals: Unremarkable. Kidneys: No renal calculi. No hydronephrosis. Bowel: Moderate descending and sigmoid colon diverticulosis without evidence for acute diverticulitis. The appendix appears normal. No evidence for bowel obstruction. No free fluid or free air. Pelvis: Prominent prostate. Bladder is not distended. Bladder wall thickening not excluded, appears less thick than on the prior CT. Ectatic infrarenal abdominal aorta measuring 2.8 cm, unchanged. No acute bone findings. IMPRESSION: 1. Moderate descending and sigmoid colon diverticulosis without evidence for acute diverticulitis. 2. Normal appendix. 3. No acute findings are seen. 4. Irregular nodule seen medially in the right lower lobe posterior aspect abutting the pleura, measures 1.3 x 0.7 cm, appears unchanged from 2014 most suggestive for benign. 5. See above. RADIA
[2018-07-20] MEDS ORDERED: DOCUSATE SODIUM 100 MG CAPSULE PO STA (00:02)
[2018-07-20] MEDS ORDERED: MAGNESIUM CITRATE 296 ML BOTTLE PO STA (00:02)
[2018-07-20 00:16] VITALS: BP 156/98
== END 2018-07-20 00:16 | disposition home or self-care (01) ==
LOC: ED 18:31
DX: R10.84 Generalized abdominal pain (principal); I10 Essential (primary) hypertension; E78.00 Pure hypercholesterolemia, unspecified; I25.2 Old myocardial infarction; E11.9 Type 2 diabetes mellitus without complications; F17.200 Nicotine dependence, unspecified, uncomplicated; Z96.659 Presence of unspecified artificial knee joint
CPT/HCPCS: 36415; 74176; 80053; 81001; 83690; 85025; 96361; 96374; 96375; 99283; 99284; A9270; 81003; 87086

== ENCOUNTER 2019-07-11 06:46 | Day surgery (SDC) | payer MEDICARE, OTHER ==
[~2019-07-11 06:46] MED LIST: CYCLOPENTOLATE 1% OPHTH DROPS 2 ML ONE; KETOROLAC 0.45% OPHTH DROPS ONE; PHENYLEPHRINE 2.5% OPHTH 2 ML DROPS ONE; PROPARACAINE 0.5% OPHTH DROPS 15 ML ONE
[2019-07-11] MEDS ORDERED: CYCLOPENTOLATE 1% OPHTH DROPS 2 ML RIGHTEYE ONE (07:05)
[2019-07-11] MEDS ORDERED: PROPARACAINE 0.5% OPHTH DROPS 15 ML RIGHTEYE ONE ×2 (07:05→08:02)
[2019-07-11] MEDS ORDERED: KETOROLAC 0.45% OPHTH DROPS RIGHTEYE ONE (07:05)
[2019-07-11] MEDS ORDERED: PHENYLEPHRINE 2.5% OPHTH 2 ML DROPS RIGHTEYE ONE (07:05)
[2019-07-11] MEDS ORDERED: LACTATED RINGERS 500 ML IV ONE (07:18)
[2019-07-11] MEDS ORDERED: BRIMONIDINE 0.2% OPHTH DROPS 5 ML ONE (07:22)
[2019-07-11] MEDS ORDERED: BSS/LIDOCAINE/EPINEPHRINE 1 ML SYRINGE ONE (07:22)
[2019-07-11] MEDS ORDERED: VANCOMYCIN OPHTHALMI 8MG/0.8ML 8 MG/0.8 ML SYRINGE IO ONE ×2 (07:22→08:08)
[2019-07-11] MEDS ORDERED: TIMOLOL 0.5% OPHTH DROPS ONE (07:22)
[2019-07-11] MEDS ORDERED: TRIAMCIN/MOXIFLOX OPHTHALMIC 0.6 ML VIAL IO ONE ×2 (07:22→08:08)
[2019-07-11] MEDS ORDERED: EPINEPHrine 1 MG/ML AMP ONE (07:22)
--- NOTE | 2019-07-11 07:40 | ANESTHESIA ---
Pre-Anesthesia VS, & Labs - Diagnosis Right senile combined cataract - Procedure Right phaco with IOL implant Vital Signs: Temp Pulse Resp BP Pulse Ox 37.0 C 51 L 16 192/53 H 98 07/11/19 07:02 07/11/19 07:02 07/11/19 07:02 07/11/19 07:02 07/11/19 07:02 Height 5 ft 8.5 in Weight (kg) 63.9 kg Body Mass Index 22.8 - NPO >8 hours - Lab Results Current Lab Results: Laboratory Tests 07/11/19 07:11: POC Whole Bld Glucose 180 H Lab results reviewed: No Home Medications and Allergies Amlodipine Besylate 5 mg PO BID 11/27/13 Calcium Citrate/Vitamin D3 [Citracal-Vit D3 200 mg-250 Tab] 1 each PO DAILY 11/27/13 Carvedilol [Coreg] 25 mg PO BID 11/27/13 Insulin Glargine,Hum.rec.anlog [Lantus] 30 unit SQ QPM PRN 11/27/13 Polyethylene Glycol 3350 [Miralax] 8.5 - 17 gm PO DAILY 11/27/13 Telmisartan [Micardis] 80 mg PO DAILY 11/27/13 cloNIDine [Catapres-Tts 3] 1 each TD .WEEKLY 11/27/13 oxyCODONE [Roxicodone] 5 mg PO TID PRN 11/27/13 Oxycodone HCl [Oxycontin] 10 mg PO QID 11/28/17 Allergies/Adverse Reactions: Allergies Allergy/AdvReac Type Severity Reaction Status Date / Time amoxicillin [Amoxicillin] Allergy Hives Verified 07/11/19 07:05 acetaminophen AdvReac Nausea Verified 07/11/19 07:05 aspirin AdvReac Nausea Verified 07/11/19 07:05 contrast dye Allergy Rash Uncoded 07/11/19 07:05 Anes History & Medical History - Anesthetic History Anesthesia Complications: reports: No previous complications Family history of Anesthesia Complications: Denies Family history of Malignant Hyperthermia: Denies - Medical History Cardiovascular: reports: Hypertension, High cholesterol, [place], Other (Poor exercisr tolerance due to lower extrmity pain) Pulmonary: reports: None Gastrointestinal: reports: GERD, Other Urinary: reports: None Neuro: reports: None Musculoskeletal: reports: Osteoarthritis, Gout, Chronic back pain Endocrine/Autoimmune: reports: Type 1 diabetes Blood Disorders: reports: None Skin: reports: Psoriasis Smoking Status: Former smoker Psychosocial: reports: No issues indicated - Surgical History Eyes Ears Nose Throat (EENT): Cataracts Orthopedic: Knee replacement, Other Exam General: Alert, Oriented x3, Cooperative Dental: Dentures full Upper, Dentures full Lower Neck Mobility: Reduced Mallampati classification: II Thyromental Distance: greater than 6 cm Respiratory: Lungs clear Cardiovascular: Regular rate Neurological: Normal speech Mental/Cognitive Status: Alert/Oriented X3 Cognitive Status: Within normal limits Plan Anesthesia Type: MAC Consent for Procedure(s) Verified and Reviewed: Yes Code Status: Attempt Resuscitation ASA classification: 3-Severe systemic disease Is this case an emergency?: No
[2019-07-11] MEDS ORDERED: MIDAZOLAM 2 MG/2 ML VIAL IVP ONE (07:59)
[2019-07-11] MEDS ORDERED: BRIMONIDINE 0.2% OPHTH DROPS 5 ML OPTH ONE (08:06)
[2019-07-11] MEDS ORDERED: TIMOLOL 0.5% OPHTH DROPS OPTH ONE (08:07)
[2019-07-11] MEDS ORDERED: EPINEPHrine 1 MG/ML AMP IVP ONE (08:07)
[2019-07-11] MEDS ORDERED: CHONDR SULF/HYALURONATE SYRINGE IO ONE (08:07)
[2019-07-11] MEDS ORDERED: BSS/LIDOCAINE/EPINEPHRINE 1 ML SYRINGE IO ONE (08:07)
[2019-07-11 08:36] VITALS: BP 132/61
--- NOTE | 2019-07-11 08:40 | OPERATIVE REPORT ---
DATE OF SERVICE: 07/11/2019 Physician: Wenceslao Rapp MD PREOPERATIVE DIAGNOSIS: Visually significant cataract, right eye. Cataract surgery was performed on the left eye on 01/12/2017. POSTOPERATIVE DIAGNOSIS: Visually significant cataract, right eye. Cataract surgery was performed o n the left eye on 01/12/2017. PROCEDURE: Phacoemulsification with posterior chamber intraocular lens implant, right eye. SURGEON: Wenceslao Rapp MD ANESTHESIA: Monitored anesthesia care. COMPLICATIONS: None. OPERATIVE INDICATIONS: This is a 74-year-old man with progressive vision loss in the right eye due t o 4+ nuclear sclerotic, 1-2+ cortical and 2+ posterior subcapsular cataract. Best corrected visual a cuity was 20/70 with glare to hand motion vision in the right eye. Indications for surgery were over all decrease in vision, difficulty seeing words on a computer screen, difficulty reading, difficulty seeing words, closed caption or game scores on TV, difficulty driving in low light or at night, diffi culty driving at night because of headlights from other vehicles, difficulty with glare or bright lig hts in any situation, difficulty tracking a golf ball and decreased acuity with firearms. He was con sented at length concerning the risks and benefits of cataract surgery, after which he expressed a de sire to proceed with surgery. OPERATIVE PROCEDURE: Patient was taken to OR #3 and placed under monitored anesthesia care. Surgica l timeout was conducted confirming correct patient, correct procedure, and correct surgical site. He was given topical anesthesia and then prepped and draped in the usual sterile fashion. The eye was entered at the 12 and 9 o'clock positions. Intracameral Shugarcaine was injected into the anterior c hamber, followed by Viscoat. A continuous-tear curvilinear capsulorrhexis was performed. The nucleu s was hydrodissected and phacoemulsified. The cortex was evacuated using automated infusion and aspi ration. Provisc was injected in the capsular bag, and a 22.0 diopter intraocular lens was inserted i n the bag. Approximately 0.8 mL of a mixture of triamcinolone, moxifloxacin and vancomycin was injec carmen subconjunctivally in the superior quadrant for infection and inflammation prophylaxis. I and A, was used to evacuate the viscoelastic materials. The eye was inflated to physiologic pressure using balanced salt solution and found to be watertight. The patient was taken from the operating room in good condition and given postoperative instructions. TD: 07/11/2019 08:27
== END 2019-07-11 06:47 | disposition home or self-care (01) ==
LOC: SDS 06:46
PROVIDERS: ATTEND Ophthalmology
PROC: 08RJ3JZ Replacement of Right Lens with Synthetic Substitute, Percutaneous Approach (ICD-10-PCS; principal; 2019-07-11 08:00)
DX: E11.36 Type 2 diabetes mellitus with diabetic cataract (principal); I10 Essential (primary) hypertension; E78.00 Pure hypercholesterolemia, unspecified; M79.605 Pain in left leg; M79.604 Pain in right leg; K21.9 Gastro-esophageal reflux disease without esophagitis; M19.90 Unspecified osteoarthritis, unspecified site; M10.9 Gout, unspecified; G89.29 Other chronic pain; M54.9 Dorsalgia, unspecified; Z79.4 Long term (current) use of insulin; Z79.891 Long term (current) use of opiate analgesic; I25.2 Old myocardial infarction; Z87.891 Personal history of nicotine dependence; Z85.828 Personal history of other malignant neoplasm of skin
CPT/HCPCS: 66984; A9270; J3490; V2632

== ENCOUNTER 2019-10-08 08:00 | Outpatient (CLI) | payer MEDICARE, OTHER ==
[2019-10-08 12:45] LABS: BASOPHILS # (AUTO) 0.1 10^3/uL (0.0-0.1); BASOPHILS % (AUTO) 0.5 %; EOSINOPHILS # (AUTO) 0.4 10^3/uL (0.0-0.7); EOSINOPHILS % (AUTO) 3.9 %; HGB - HEMOGLOBIN 14.4 g/dL (14.0-18.0); LYMPHOCYTES # (AUTO) 1.9 10^3/uL (1.5-3.5); LYMPHOCYTES % (AUTO) 20.7 %; MEAN CORPUSCULAR HEMOGLOBIN 30.3 pg (27.0-31.0); MEAN PLATELET VOLUME 11.1 fL (7.4-11.4); MONOCYTES # (AUTO) 0.7 10^3/uL (0.0-1.0); MONOCYTES % (AUTO) 7.4 %; NEUTROPHILS # (AUTO) 6.2 10^3/uL (1.5-6.6); NEUTROPHILS % (AUTO) 67.1 %; PLT - PLATELET COUNT 139 10^3/uL (130-450); RED BLOOD COUNT 4.75 10^6/uL (4.70-6.10); RED CELL DISTRIBUTION WIDTH 13.1 % (12.0-15.0); WHITE BLOOD COUNT 9.3 x10^3/uL (4.8-10.8)
[2019-10-08 13:09] LABS: ALBUMIN 4.8 g/dL (3.2-5.5); ALBUMIN/GLOBULIN RATIO 1.8 (1.0-2.2); ALKALINE PHOSPHATASE 75 IU/L (42-121); ALT ALANINE AMINOTRANSFERASE 12 IU/L (10-60); AST ASPARTATE AMINOTRANSFERASE 15 IU/L (10-42); BILIRUBIN,TOTAL 1.1 mg/dL (0.2-1.0); BUN - BLOOD UREA NITROGEN 12 mg/dL (6-20); CALCIUM 9.3 mg/dL (8.5-10.3); CARBON DIOXIDE - CO2 30 mmol/L (21-32); CHLORIDE 97 mmol/L (101-111); CHOL/HDL RATIO 3.9 (<5.0); CHOLESTEROL 156 mg/dL; CREATININE 0.8 mg/dL (0.6-1.2); GFR - MDRD 94 (>89); GLUCOSE 184 mg/dL (70-100); HDL CHOLESTEROL 40 mg/dL; LDL CHOLESTEROL,CALCULATED 95 mg/dL; LDL/HDL RATIO 2.4 (<3.6); SODIUM 136 mmol/L (135-145); TOTAL PROTEIN 7.4 g/dL (6.7-8.2); VLDL CHOLESTEROL 21 mg/dL
== END 2019-10-08 23:59 | disposition home or self-care (01) ==
LOC: LAB.WCP 08:00
PROVIDERS: ATTEND Family Medicine
DX: Z79.891 Long term (current) use of opiate analgesic (principal); E11.9 Type 2 diabetes mellitus without complications; E78.5 Hyperlipidemia, unspecified; I10 Essential (primary) hypertension
CPT/HCPCS: 36415; 80053; 80061; 83721; 84443; 85025

== ENCOUNTER 2019-12-09 08:00 | Outpatient (CLI) | payer MEDICARE, OTHER ==
[2019-12-09 12:05] LABS: BASOPHILS # (AUTO) 0.1 10^3/uL (0.0-0.1); BASOPHILS % (AUTO) 0.8 %; EOSINOPHILS # (AUTO) 0.3 10^3/uL (0.0-0.7); EOSINOPHILS % (AUTO) 4.3 %; HGB - HEMOGLOBIN 14.5 g/dL (14.0-18.0); LYMPHOCYTES # (AUTO) 1.3 10^3/uL (1.5-3.5); LYMPHOCYTES % (AUTO) 20.9 %; MEAN CORPUSCULAR HEMOGLOBIN 30.1 pg (27.0-31.0); MEAN CORPUSCULAR HGB CONC 33.3 g/dL (32.0-36.0); MEAN CORPUSCULAR VOLUME 90.5 fL (80.0-94.0); MEAN PLATELET VOLUME 11.1 fL (7.4-11.4); MONOCYTES # (AUTO) 0.5 10^3/uL (0.0-1.0); MONOCYTES % (AUTO) 7.5 %; NEUTROPHILS % (AUTO) 66.2 %; PLT - PLATELET COUNT 117 10^3/uL (130-450); RED BLOOD COUNT 4.82 10^6/uL (4.70-6.10); RED CELL DISTRIBUTION WIDTH 12.8 % (12.0-15.0)
[2019-12-09 12:18] LABS: CREATININE,URINE 29.4 mg/dL; MICROALBUM/CREATININE RATIO,UR 527.2 ug/mg (<30.0); MICROALBUMIN,URINE 15.5 mg/dL (0-300.0)
[2019-12-09 12:25] LABS: ALBUMIN 4.2 g/dL (3.2-5.5); ALBUMIN/GLOBULIN RATIO 1.4 (1.0-2.2); ALKALINE PHOSPHATASE 69 IU/L (42-121); ALT ALANINE AMINOTRANSFERASE 13 IU/L (10-60); AST ASPARTATE AMINOTRANSFERASE 16 IU/L (10-42); BUN - BLOOD UREA NITROGEN 14 mg/dL (6-20); CALCIUM 9.3 mg/dL (8.5-10.3); CARBON DIOXIDE - CO2 27 mmol/L (21-32); CHLORIDE 99 mmol/L (101-111); CHOL/HDL RATIO 4.1 (<5.0); CHOLESTEROL 161 mg/dL; CREATININE 0.9 mg/dL (0.6-1.2); GFR - MDRD 82 (>89); GLUCOSE 186 mg/dL (70-100); HDL CHOLESTEROL 39 mg/dL; LDL CHOLESTEROL,CALCULATED 100 mg/dL; LDL/HDL RATIO 2.6 (<3.6); SODIUM 136 mmol/L (135-145); TOTAL PROTEIN 7.3 g/dL (6.7-8.2); VLDL CHOLESTEROL 22 mg/dL
[2019-12-09 12:26] LABS: HB2 TOTAL 15.1 g/dL; HEMOGLOBIN A1C 0.76 g/dL; HEMOGLOBIN A1C % 6.8 % (4.6-6.2)
== END 2019-12-09 23:59 | disposition home or self-care (01) ==
LOC: LAB.WCP 08:00
PROVIDERS: ATTEND Family Medicine
DX: I67.4 Hypertensive encephalopathy (principal); E11.9 Type 2 diabetes mellitus without complications; I10 Essential (primary) hypertension; K76.0 Fatty (change of) liver, not elsewhere classified; E78.5 Hyperlipidemia, unspecified
CPT/HCPCS: 36415; 80053; 80061; 82043; 82570; 83036; 83721; 84443; 85025

== ENCOUNTER 2020-09-30 14:40 | Outpatient (CLI) | payer OTHER, MEDICARE | END 2020-09-30 14:41 | disposition short-term general hospital (02) | LOC: EMS 14:40 | PROVIDERS: ATTEND Surgery | DX: M25.562 Pain in left knee (principal); V28.4XXA Motorcycle driver injured in noncollision transport accident in traffic accident, initial encounter; Y92.414 Local residential or business street as the place of occurrence of the external cause | CPT/HCPCS: A0425; A0429 ==

== ENCOUNTER 2020-11-30 08:27 | Outpatient (CLI) | payer MEDICARE, OTHER ==
[2020-11-30 12:02] LABS: BASOPHILS % (AUTO) 0.5 %; EOSINOPHILS # (AUTO) 0.2 10^3/uL (0.0-0.7); EOSINOPHILS % (AUTO) 2.1 %; HGB - HEMOGLOBIN 14.2 g/dL (14.0-18.0); LYMPHOCYTES # (AUTO) 1.4 10^3/uL (1.5-3.5); LYMPHOCYTES % (AUTO) 18.1 %; MEAN CORPUSCULAR HEMOGLOBIN 28.8 pg (27.0-31.0); MEAN CORPUSCULAR HGB CONC 31.6 g/dL (32.0-36.0); MEAN CORPUSCULAR VOLUME 91.3 fL (80.0-94.0); MEAN PLATELET VOLUME 10.8 fL (7.4-11.4); MONOCYTES # (AUTO) 0.5 10^3/uL (0.0-1.0); MONOCYTES % (AUTO) 6.3 %; NEUTROPHILS # (AUTO) 5.5 10^3/uL (1.5-6.6); NEUTROPHILS % (AUTO) 72.3 %; PLT - PLATELET COUNT 133 10^3/uL (130-450); RED BLOOD COUNT 4.93 10^6/uL (4.70-6.10); WHITE BLOOD COUNT 7.6 x10^3/uL (4.8-10.8)
[2020-11-30 13:00] LABS: HEMOGLOBIN A1c% 6.2 % (4.27-6.07)
[2020-11-30 13:10] LABS: ALBUMIN/GLOBULIN RATIO 1.3 (1.0-2.2); ALKALINE PHOSPHATASE 79 IU/L (42-121); ALT ALANINE AMINOTRANSFERASE 11 IU/L (10-60); AST ASPARTATE AMINOTRANSFERASE 12 IU/L (10-42); BUN - BLOOD UREA NITROGEN 13 mg/dL (6-20); CALCIUM 9.4 mg/dL (8.5-10.3); CARBON DIOXIDE - CO2 26 mmol/L (21-32); CHLORIDE 105 mmol/L (101-111); CHOL/HDL RATIO 4.8 (<5.0); CHOLESTEROL 205 mg/dL; CREATININE 0.9 mg/dL (0.6-1.2); GLUCOSE 165 mg/dL (70-100); HDL CHOLESTEROL 43 mg/dL; LDL CHOLESTEROL,CALCULATED 140 mg/dL; LDL/HDL RATIO 3.3 (<3.6); SODIUM 140 mmol/L (135-145); TOTAL PROTEIN 7.2 g/dL (6.7-8.2); VLDL CHOLESTEROL 22 mg/dL
[2020-11-30 13:15] LABS: CREATININE,URINE 120.3 mg/dL; MICROALBUM/CREATININE RATIO,UR 2396.5 ug/mg (<30.0); MICROALBUMIN,URINE 288.3 mg/dL (0-300.0)
== END 2020-11-30 23:59 | disposition home or self-care (01) ==
LOC: LAB.WCP 08:27
PROVIDERS: ATTEND Family Medicine
DX: E11.9 Type 2 diabetes mellitus without complications (principal)
CPT/HCPCS: 36415; 80053; 80061; 82043; 82570; 83036; 83721; 85025

== ENCOUNTER 2020-12-07 13:29 | Outpatient (CLI) | payer MEDICARE, OTHER ==
--- NOTE | 2020-12-07 12:43 | XRAY Report ---
PROCEDURE: Knee 4 View RT INDICATIONS: R KNEE PX TECHNIQUE: 4 views of the right knee(s) were acquired. COMPARISON: None. FINDINGS: Bones: Fixation hardware in visualized portion of femoral shaft is seen. No gross hardware loosening or failure. Severe tricompartmental osteoarthritis is seen. Diffuse osteopenia is also noted. No acu te fractures or dislocations. No suspicious bony lesions. Soft tissues: No joint effusion. No suspicious soft tissue calcifications. IMPRESSION: Severe tricompartmental osteoarthritis and diffuse osteopenia. No acute fracture or disl ocation. No joint effusion. Prior fixation of femoral shaft. No gross hardware complication. Reviewed by: Kota Conde MD on 12/07/2020 12:42 PM PST Approved by: Kota Conde MD on 12/07/2020 12:42 PM PST Station ID: [id number]
== END 2020-12-07 23:59 | disposition home or self-care (01) ==
LOC: DI.N 13:29
PROVIDERS: ATTEND Orthopaedic Surgery
DX: M17.11 Unilateral primary osteoarthritis, right knee (principal); M85.861 Other specified disorders of bone density and structure, right lower leg

== ENCOUNTER 2021-06-17 21:41 | Outpatient (CLI) | payer MEDICARE, OTHER | END 2021-06-17 21:42 | disposition critical access hospital (66) | LOC: EMS 21:41 | DX: S01.112A Laceration without foreign body of left eyelid and periocular area, initial encounter (principal); M79.642 Pain in left hand; M25.562 Pain in left knee; W01.198A Fall on same level from slipping, tripping and stumbling with subsequent striking against other object, initial encounter; Y93.01 Activity, walking, marching and hiking; Y92.008 Other place in unspecified non-institutional (private) residence as the place of occurrence of the external cause | CPT/HCPCS: A0425; A0429 ==

== ENCOUNTER 2021-06-17 22:01 | Emergency (ER) | payer MEDICARE, OTHER ==
[2021-06-17] MEDS ORDERED: TETANUS/DIPHTHERIA/PERTUSSIS 0.5 ML SYRINGE IM ONE (22:10)
[2021-06-17] MEDS ORDERED: oxyCODONE 5 MG TABLET PO STA ×2 (22:11→23:35)
[2021-06-17] MEDS ORDERED: BACITRACIN ZINC OINT 1 PACKET TOP STA (22:12)
--- NOTE | 2021-06-17 22:15 | ED Physician Documentation ---
History of Present Illness - Stated complaint Stated Complaint: GLF, HIT HEAK, RT EYE HEMATOMA - History obtained from History obtained from: Patient, EMS - Additonal information Additional information: 76-year-old man, not on blood thinners, presents status post mechanical fall down 1 stair onto his left side sustaining a forehead hematoma without LOC prior to arrival. Also with avulsion to left hand and abrasion to left knee. Patient has no other complaints. Pain right now is an 8 out of 10, constant, sudden onset after hitting his forehead Review of Systems Musculoskeletal: reports: Extremity pain. denies: Neck pain, Back pain Neurologic: reports: Head injury. denies: LOC PD PAST MEDICAL HISTORY - Past Medical History Cardiovascular: Hypertension, High cholesterol, [place], Other (Poor exercisr tolerance due to lower extrmity pain) Respiratory: None Neuro: None Endocrine/Autoimmune: Type 1 diabetes GI: GERD, Other : None HEENT: Chronic vision loss Psych: None Musculoskeletal: Osteoarthritis, Gout, Chronic back pain Derm: Psoriasis - Past Surgical History Past Surgical History: Yes Ortho: Knee replacement, Other HEENT: Cataracts - Present Medications Home Medications: Ambulatory Orders Medication Instructions Recorded Confirmed Amlodipine Besylate 5 mg PO BID 11/27/13 06/17/21 Calcium Citrate/Vitamin D3 1 each PO DAILY 11/27/13 06/17/21 [Citracal-Vit D3 200 mg-250 Tab] Carvedilol [Coreg] 25 mg PO BID 11/27/13 06/17/21 Insulin Glargine,Hum.rec.anlog 30 unit SQ QPM PRN 11/27/13 06/17/21 [Lantus] Telmisartan [Micardis] 80 mg PO DAILY 11/27/13 06/17/21 cloNIDine [Catapres-Tts 3] 1 each TD .WEEKLY 11/27/13 06/17/21 oxyCODONE [Roxicodone] 5 mg PO TID PRN 11/27/13 06/17/21 polyethylene glycoL 3350 [Miralax] 8.5 - 17 gm PO DAILY 11/27/13 06/17/21 - Allergies Allergies/Adverse Reactions: Allergies Allergy/AdvReac Type Severity Reaction Status Date / Time amoxicillin [Amoxicillin] Allergy Hives Verified 07/11/19 07:05 acetaminophen AdvReac Nausea Verified 07/11/19 07:05 aspirin AdvReac Nausea Verified 07/11/19 07:05 contrast dye Allergy Rash Uncoded 07/11/19 07:05 - Social History Does the pt smoke?: Yes Smoking Status: Former smoker Does the pt drink ETOH?: No Does the pt have substance abuse?: No - Immunizations Immunizations are current?: Yes - POLST Patient has POLST: No PD ED PE NORMAL - Vitals Vital signs reviewed: Yes - General General: Alert and oriented X 3, No acute distress, Well developed/nourished - HEENT HEENT: PERRL, EOMI, Moist mucous membranes, Pharynx benign, Dentition benign, Other (L forehead hematoma with overlying macerated skin) - Neck Neck: No bony TTP - Cardiac Cardiac: RRR - Respiratory Respiratory: No respiratory distress, Clear bilaterally - Abdomen Abdomen: Non tender, Non distended, Other (pelvis stable) - Back Back: No spinal TTP - Derm Derm: Normal color, Warm and dry, Other (avulsed skin of L hand. abrasion L knee ) - Extremities Extremities: No deformity, Normal ROM s pain, Other (2+ radial and DP pulses) - Neuro Neuro: Alert and oriented X 3, No motor deficit, No sensory deficit - Psych Psych: Normal mood, Normal affect Results - Vitals Vitals: Vital Signs - 24 hr 06/17/21 06/17/21 06/17/21 22:03 22:18 23:25 Temperature 36.5 C 36.5 C Heart Rate 53 L 56 L 59 L Respiratory 16 16 16 Rate Blood Pressure 209/65 H 190/65 H 200/69 H O2 Saturation 99 99 98 Oxygen O2 Source Room air PD MEDICAL DECISION MAKING - ED course ED course: 86-year-old man presents for traumatic evaluation. Will obtain x-ray CTs, and reevaluate. Imaging noncontributory. d/w patient and daughter and gave return precautions and discussed concussion precautions/care. plan to f/u with pmd. Departure - Departure Disposition: 01 Home, Self Care Clinical Impression: Fall from standing, Hypertension, Traumatic hematoma of forehead, Abrasion Condition: Good Instructions: ED Abrasion, ED Hematoma, ED Head Injury Closed Comments: You were seen in the emergency department for evaluation after a fall. Your x- rays and CTs did not show a emergent traumatic injury. Please return to the emergency department if you have any new or worsening symptoms or other concerns. Follow-up with your primary doctor this week.
[2021-06-18 01:03] VITALS: BP 200/89
--- NOTE | 2021-06-18 08:18 | CT Report ---
PROCEDURE: HEAD WO INDICATIONS: Head trauma, mod-severe TECHNIQUE: Noncontrast 4.5 mm thick angled axial sections acquired from the foramen magnum to the vertex. For r adiation dose reduction, the following was used: automated exposure control, adjustment of mA and/or kV according to patient size. COMPARISON: None. FINDINGS: Image quality: Excellent. CSF spaces: Basal cisterns are patent. No extra-axial fluid collections. Ventricles are normal in size and shape. Brain: Global cerebral volume loss and chronic microvascular ischemic changes, both overall moderate and age-commensurate. No midline shift. No intracranial masses or hemorrhage. Chang-white matter in terface is normal. Skull and face: Calvarium and visualized facial bones are intact, without suspicious lesions. Left frontal scalp hematoma extending over the left supraorbital soft tissues. Sinuses: Visualized sinuses and mastoids are clear. IMPRESSION: No acute intracranial finding. Left frontal and supraorbital soft tissue hematoma and sw elling. No significant change from preliminary report. Reviewed by: Diogo Louie MD on 06/18/2021 8:17 AM PDT Approved by: Diogo Louie MD on 06/18/2021 8:17 AM PDT Station ID: [id number]
--- NOTE | 2021-06-18 08:21 | XRAY Report ---
PROCEDURE: Chest 1 View X-Ray INDICATIONS: Trauma TECHNIQUE: One view of the chest was acquired. COMPARISON: None FINDINGS: Surgical changes and devices: None. Lungs and pleura: No pleural effusions or pneumothorax. Lungs are clear. Mediastinum: Mediastinal contours appear normal. Heart size is normal. Bones and chest wall: No acute or suspicious suspicious osseous abnormality identified. Overlying so ft tissues appear unremarkable. IMPRESSION: No acute finding demonstrated. No significant change from preliminary report. Reviewed by: Diogo Louie MD on 06/18/2021 8:20 AM PDT Approved by: Diogo Louie MD on 06/18/2021 8:20 AM PDT Station ID: [id number]
--- NOTE | 2021-06-18 08:33 | XRAY Report ---
PROCEDURE: Pelvis 1 View INDICATIONS: Trauma TECHNIQUE: Single AP view of the pelvis. COMPARISON: None. FINDINGS: Bones: Moderate osteoarthritic changes in the bilateral femoroacetabular joints. No fracture identifi ed. No suspicious lytic or blastic osseous lesion. Mild lower lumbar spine degenerative changes. Soft tissues: Visualized bowel gas pattern is normal. No suspicious soft tissue calcifications. IMPRESSION: No acute finding. No significant change from preliminary report. Reviewed by: Diogo Louie MD on 06/18/2021 8:31 AM PDT Approved by: Diogo Louie MD on 06/18/2021 8:31 AM PDT Station ID: [id number]
--- NOTE | 2021-06-18 08:35 | XRAY Report ---
PROCEDURE: Knee 2 View LT INDICATIONS: Left knee pain and abrasion status post fall TECHNIQUE: 2 views of the left knee(s) were acquired. COMPARISON: 12/14/2017. FINDINGS: Post surgical changes of left total knee arthroplasty. Normal alignment of the knee. No evidence of a cute fracture. Irregular appearance of the inferior patella presumably secondary to remote trauma or representing postsurgical changes, similar to the comparison exam. No knee joint effusion. IMPRESSION: No acute finding. No significant change from pulmonary report. No significant change fro m prior study obtained 12/14/2017 Reviewed by: Diogo Louie MD on 06/18/2021 8:34 AM PDT Approved by: Diogo Louie MD on 06/18/2021 8:34 AM PDT Station ID: [id number]
--- NOTE | 2021-06-18 08:38 | CT Report ---
PROCEDURE: CERVICAL SPINE WO INDICATIONS: Neck trauma, midline tenderness TECHNIQUE: Noncontrast 3 mm thick sections acquired from the skull base to the T4 level. Sagittal and coronal r eformats were then constructed. For radiation dose reduction, the following was used: automated exp osure control, adjustment of mA and/or kV according to patient size. COMPARISON: None. FINDINGS: Image quality: Excellent. Bones: Remote T3 compression fracture. Remaining vertebral body heights are maintained. Normal alignm ent of the cervical spine. Moderate 2 severe degenerative changes. Soft tissues: Prevertebral soft tissues are normal in thickness. No paravertebral hematomas. No ap ical pneumothoraces. IMPRESSION: No CT evidence of acute traumatic cervical spine injury. Remote T3 compression fracture. No significa nt change from preliminary report. Reviewed by: Diogo Louie MD on 06/18/2021 8:36 AM PDT Approved by: Diogo Louie MD on 06/18/2021 8:36 AM PDT Station ID: [id number]
== END 2021-06-18 01:23 | disposition home or self-care (01) ==
LOC: EDUNIT# → ED 22:01
DX: S00.83XA Contusion of other part of head, initial encounter (principal); S61.402A Unspecified open wound of left hand, initial encounter; S80.212A Abrasion, left knee, initial encounter; W10.8XXA Fall (on) (from) other stairs and steps, initial encounter; Z23 Encounter for immunization; I10 Essential (primary) hypertension; E10.9 Type 1 diabetes mellitus without complications; M47.812 Spondylosis without myelopathy or radiculopathy, cervical region; Z96.652 Presence of left artificial knee joint; Z87.891 Personal history of nicotine dependence
CPT/HCPCS: 70450; 71045; 72125; 72170; 73560; 90471; 90715; 99283; 99284; A9270

== ENCOUNTER 2023-06-20 09:22 | Outpatient (CLI) | payer MEDICARE, OTHER ==
[2023-06-20 12:11] LABS: BASOPHILS # (AUTO) 0.1 10^3/uL (0.0-0.1); BASOPHILS % (AUTO) 0.6 %; EOSINOPHILS # (AUTO) 0.2 10^3/uL (0.0-0.7); EOSINOPHILS % (AUTO) 2.2 %; HCT - HEMATOCRIT 39.7 % (42.0-52.0); HGB - HEMOGLOBIN 12.9 g/dL (14.0-18.0); LYMPHOCYTES # (AUTO) 1.7 10^3/uL (1.5-3.5); LYMPHOCYTES % (AUTO) 17.6 %; MEAN CORPUSCULAR HEMOGLOBIN 29.5 pg (27.0-31.0); MEAN CORPUSCULAR HGB CONC 32.5 g/dL (32.0-36.0); MEAN CORPUSCULAR VOLUME 90.6 fL (80.0-94.0); MONOCYTES # (AUTO) 0.6 10^3/uL (0.0-1.0); MONOCYTES % (AUTO) 6.2 %; NEUTROPHILS # (AUTO) 6.8 10^3/uL (1.5-6.6); NEUTROPHILS % (AUTO) 73.1 %; PLT - PLATELET COUNT 149 10^3/uL (130-450); RED BLOOD COUNT 4.38 10^6/uL (4.70-6.10); RED CELL DISTRIBUTION WIDTH 12.9 % (12.0-15.0); WHITE BLOOD COUNT 9.4 x10^3/uL (4.8-10.8)
[2023-06-20 12:27] LABS: ESTIMATED AVERAGE GLUCOSE 183 mg/dL (70-100)
[2023-06-20 12:37] LABS: ALBUMIN 4.1 g/dL (3.2-5.5); ALBUMIN/GLOBULIN RATIO 1.5 (1.0-2.2); ALKALINE PHOSPHATASE 75 IU/L (42-121); ALT ALANINE AMINOTRANSFERASE 8 IU/L (10-60); AST ASPARTATE AMINOTRANSFERASE 11 IU/L (10-42); BILIRUBIN,TOTAL 0.5 mg/dL (0.2-1.0); BUN - BLOOD UREA NITROGEN 24 mg/dL (6-20); CALCIUM 9.7 mg/dL (8.5-10.3); CARBON DIOXIDE - CO2 29 mmol/L (21-32); CHLORIDE 103 mmol/L (101-111); CHOL/HDL RATIO 5.5 (<5.0); CHOLESTEROL 186 mg/dL; CREATININE 1.3 mg/dL (0.6-1.3); GFR - MDRD 53 (>89); GLUCOSE 225 mg/dL (74-104); HDL CHOLESTEROL 34 mg/dL; LDL CHOLESTEROL,CALCULATED 96 mg/dL; LDL/HDL RATIO 2.8 (<3.6); MAGNESIUM 1.9 mg/dL (1.7-2.3); POTASSIUM 4.2 mmol/L (3.5-4.5); SODIUM 137 mmol/L (135-145); TOTAL PROTEIN 6.8 g/dL (6.4-8.9); TRIGLYCERIDES 281 mg/dL (48-352); VLDL CHOLESTEROL 56 mg/dL
[2023-06-20 12:38] LABS: THYROID STIMULATING HORMONE 2.76 uIU/mL (0.34-5.60)
== END 2023-06-20 09:23 | disposition home or self-care (01) ==
LOC: LAB.N 09:22
PROVIDERS: ATTEND Physician Assistant
DX: E11.9 Type 2 diabetes mellitus without complications (principal); K76.0 Fatty (change of) liver, not elsewhere classified; E78.5 Hyperlipidemia, unspecified; Z12.11 Encounter for screening for malignant neoplasm of colon; I10 Essential (primary) hypertension
CPT/HCPCS: 36415; 80053; 80061; 83036; 83721; 83735; 84443; 85025